=== PATIENT | female | born 1955 | race African-American/Black ===

== ENCOUNTER 2017-12-22 21:02 | Inpatient (IN) | payer MEDICAID ==
[~2017-12-22] VITALS: Ht 167.6 cm; Wt 70.8 kg
[2017-12-22] MEDS ORDERED: ALBUTEROL (0.083%) 2.5MG/3ML NEB HHN STA (21:50)
[2017-12-22] MEDS ORDERED: MORPHINE SULFATE 2 MG/ML CPJ (NOT FOR IM USE) IV ONE (22:00)
[2017-12-22 22:54] LABS: BASOPHILS % 0.9 % (0.0-2.0); EOSINOPHILS % 2.2 % (0.0-5.0); HEMATOCRIT. 40.5 % (36.0-48.0); LYMPHOCYTES % 36.1 % (20.0-50.0); MEAN CORPUSCULAR HEMOGLOBIN 31.4 pg (28.0-32.0); MEAN CORPUSCULAR VOLUME 98.4 fL (81.0-99.0); MEAN PLATELET VOLUME 9.1 fl (7.4-10.4); MONOCYTES % 9.1 % (2.0-8.0); NEUTROPHILS % 51.7 % (40.0-76.0); PLATELET 215 x1000/uL (130-400); RED BLOOD CELL COUNT 4.12 mill/uL (4.2-5.4); RED CELL DISTRIBUTION WIDTH 19.6 % (11.6-14.6)
[2017-12-22 22:59] LABS: CHLORIDE 110 mEq/L (98-107)
[2017-12-22 23:01] LABS: INR 1.1; PROTHROMBIN TIME 11.6 sec (9.4-11.6)
[2017-12-22] MEDS ORDERED: FUROSEMIDE 40MG/4ML VIAL IVP ONE (23:30)
[2017-12-22] MEDS ORDERED: METHYLPREDNISOLONE SOD SUCC 125 MG/2 ML VIAL IV ONE (23:45)
[2017-12-22] MEDS ORDERED: ACETAMINOPHEN WITH CODEINE 300/30MG TABLET PO ONE (23:45)
[2017-12-23] MEDS ORDERED: MAGNESIUM/ALUMINUM HYDROXIDE/SIMETHICONE 30ML UDC PO PRN (01:30)
[2017-12-23] MEDS ORDERED: CLONIDINE 0.1MG TABLET PO PRN (01:30)
[2017-12-23] MEDS ORDERED: IPRATROPIUM/ALBUTEROL 0.5-3(2.5)MG/3ML NEB INH PRN (01:30)
[2017-12-23] MEDS ORDERED: DOCUSATE SODIUM 100MG CAPSULE PO PRN (01:30)
[2017-12-23] MEDS ORDERED: ACETAMINOPHEN 325MG TABLET PO PRN (01:30)
[2017-12-23 02:05] LABS: CHLORIDE 105 mEq/L (98-107)
[2017-12-23 02:51] VITALS: BP 147/84
[2017-12-23 04:00] VITALS: BP 126/80
[2017-12-23] MEDS: METHYLPREDNISOLONE SOD SUCC 40 MG/ML VIAL IV SCH ×3 (06:48→21:57)
[2017-12-23 08:00] VITALS: BP 134/81
[2017-12-23] MEDS: ENOXAPARIN 40MG/0.4ML SYR SUBCUT SCH (10:17)
[2017-12-23 11:08] LABS: CREATINE KINASE MB FRACTION 2.3 ng/mL (0.5-3.6)
[2017-12-23 16:09] VITALS: BP 142/79
[2017-12-23] MEDS ORDERED: METHYLPREDNISOLONE SOD SUCC 40 MG/ML VIAL IV SCH (16:15)
[2017-12-23 18:51] LABS: CREATINE KINASE MB FRACTION 2.9 ng/mL (0.5-3.6)
[2017-12-23] MEDS: IPRATROPIUM/ALBUTEROL 0.5-3(2.5)MG/3ML NEB HHN SCH ×2 (19:43→23:21)
[2017-12-23 20:00] VITALS: BP 139/70
[2017-12-23] MEDS: HYDROCODONE/ACETAMINOPHEN 5/325MG TABLET PO PRN (20:39)
[2017-12-24] VITALS: BP 127/80
[2017-12-24] MEDS: GUAIFENESIN/DM 600MG/30MG ER TAB 12HR PO PRN (02:26)
[2017-12-24] MEDS: IPRATROPIUM/ALBUTEROL 0.5-3(2.5)MG/3ML NEB HHN SCH ×4 (04:03→21:22)
[2017-12-24 06:09] LABS: BASOPHILS % 0.4 % (0.0-2.0); HEMATOCRIT. 42.8 % (36.0-48.0); HEMOGLOBIN. 13.4 g/dL (12.0-16.0); LYMPHOCYTES % 10.7 % (20.0-50.0); MEAN CORPUSCULAR HEMOGLOBIN 31.1 pg (28.0-32.0); MEAN CORPUSCULAR VOLUME 99.3 fL (81.0-99.0); MEAN PLATELET VOLUME 9.4 fl (7.4-10.4); MONOCYTES % 2.6 % (2.0-8.0); NEUTROPHILS % 86.3 % (40.0-76.0); PLATELET 232 x1000/uL (130-400); RED BLOOD CELL COUNT 4.31 mill/uL (4.2-5.4); RED CELL DISTRIBUTION WIDTH 20.1 % (11.6-14.6)
[2017-12-24 08:00] VITALS: BP 100/76
[2017-12-24] MEDS ORDERED: BUDESONIDE 0.25MG/2ML NEB HHN SCH (09:00)
[2017-12-24] MEDS: ENOXAPARIN 40MG/0.4ML SYR SUBCUT SCH (09:48)
[2017-12-24 11:33] LABS: LDL CHOLESTEROL 54 mg/dL (5-100)
[2017-12-24 11:36] LABS: HDL CHOLESTEROL 73 mg/dL (40-59)
[2017-12-24 12:00] VITALS: BP 106/72
[2017-12-24] MEDS ORDERED: GUAIFENESIN/CODEINE 200-20MG/10ML UDC PO PRN (12:45)
[2017-12-24 16:00] VITALS: BP 122/75
[2017-12-24] MEDS: BUDESONIDE 0.5MG/2ML NEB HHN SCH ×2 (16:00→21:21)
[2017-12-24] MEDS: METHYLPREDNISOLONE SOD SUCC 125 MG/2 ML VIAL IV SCH ×2 (18:15→23:59)
[2017-12-24] MEDS: BENZONATATE 100MG CAPSULE PO SCH ×2 (18:16→22:19)
[2017-12-24 20:00] VITALS: BP 133/77
[2017-12-24] MEDS: HYDROCODONE/ACETAMINOPHEN 5/325MG TABLET PO PRN (22:26)
[2017-12-24] MEDS: PROMETHAZINE/DEXTROMETHORPHAN 6.25-15MG/5ML BOTTLE 120ML PO PRN (22:27)
[2017-12-25] VITALS (8 sets, daily range): BP systolic 127–154; BP diastolic 64–96
[2017-12-25] MEDS: IPRATROPIUM/ALBUTEROL 0.5-3(2.5)MG/3ML NEB HHN SCH ×6 (00:37→21:18)
[2017-12-25] MEDS: BENZONATATE 100MG CAPSULE PO SCH ×3 (05:17→22:02)
[2017-12-25] MEDS: METHYLPREDNISOLONE SOD SUCC 125 MG/2 ML VIAL IV SCH ×2 (05:17→12:52)
[2017-12-25] MEDS: HYDROCODONE/ACETAMINOPHEN 5/325MG TABLET PO PRN ×3 (05:31→21:57)
[2017-12-25 06:28] LABS: BASOPHILS % 0.6 % (0.0-2.0); EOSINOPHILS % 0.2 % (0.0-5.0); HEMOGLOBIN. 13.4 g/dL (12.0-16.0); MEAN CORPUSCULAR HEMOGLOBIN 31.3 pg (28.0-32.0); MEAN CORPUSCULAR VOLUME 98.3 fL (81.0-99.0); MEAN PLATELET VOLUME 9.3 fl (7.4-10.4); MONOCYTES % 1.6 % (2.0-8.0); NEUTROPHILS % 87.6 % (40.0-76.0); PLATELET 214 x1000/uL (130-400); RED BLOOD CELL COUNT 4.27 mill/uL (4.2-5.4); RED CELL DISTRIBUTION WIDTH 19.5 % (11.6-14.6)
[2017-12-25 06:52] LABS: CHLORIDE 102 mEq/L (98-107)
[2017-12-25] MEDS: ENOXAPARIN 40MG/0.4ML SYR SUBCUT SCH (08:53)
[2017-12-25] MEDS: BUDESONIDE 0.5MG/2ML NEB HHN SCH ×2 (09:02→21:18)
[2017-12-25] MEDS: GUAIFENESIN/DM 600MG/30MG ER TAB 12HR PO PRN (09:04)
[2017-12-25] MEDS: DILTIAZEM HCL 30MG TABLET PO SCH ×2 (12:53→22:03)
[2017-12-25] MEDS: ONDANSETRON HCL 4MG/2ML VIAL IV PRN ×2 (13:32→21:57)
[2017-12-25 17:00] LABS: COLOR URINE YELLOW (YELLOW); KETONES URINE NEGATIVE (NEGATIVE); LEUKOCYTE ESTERASE URINE 1+ (NEGATIVE); NITRITE URINE NEGATIVE (NEGATIVE); OCCULT BLOOD URINE NEGATIVE (NEGATIVE); PROTEIN URINE 1+ (NEGATIVE); SPECIFIC GRAVITY URINE 1.022 (1.005-1.030); UROBILINOGEN URINE 0.2 E.U./dL (0.2-1.0)
[2017-12-25 17:05] LABS: CLARITY URINE SLIGHTLY HAZY (CLEAR)
[2017-12-25 17:06] LABS: *AMPHETAMINES SCREEN URINE NEGATIVE (NEGATIVE); *BARBITURATES SCREEN URINE NEGATIVE (NEGATIVE); *BENZODIAZEPINES SCREEN URINE NEGATIVE (NEGATIVE)
[2017-12-25 17:07] LABS: *COCAINE SCREEN URINE PRESUMTIVE POSITIVE (NEGATIVE); CANNABINOID URINE SCREEN NEGATIVE (NEGATIVE); METHADONE URINE SCREEN NEGATIVE (NEGATIVE); OPIATES URINE SCREEN PRESUMTIVE POSITIVE (NEGATIVE); PHENCYCLIDINE URINE SCREEN PRESUMTIVE POSITIVE (NEGATIVE)
[2017-12-25] MEDS: THEOPHYLLINE ANHYDROUS 80 MG/15 ML 120ML PO SCH (21:53)
[2017-12-25] MEDS: METHYLPREDNISOLONE SOD SUCC 40 MG/ML VIAL IV SCH (21:53)
[2017-12-25] MEDS: PROMETHAZINE/DEXTROMETHORPHAN 6.25-15MG/5ML BOTTLE 120ML PO PRN (21:58)
[2017-12-26] MEDS: IPRATROPIUM/ALBUTEROL 0.5-3(2.5)MG/3ML NEB HHN SCH ×6 (00:59→20:29)
[2017-12-26] MEDS: PROMETHAZINE/DEXTROMETHORPHAN 6.25-15MG/5ML BOTTLE 120ML PO PRN (03:26)
[2017-12-26 04:00] VITALS: BP 128/72
[2017-12-26 07:00] VITALS: BP 122/78
[2017-12-26] MEDS: DILTIAZEM HCL 30MG TABLET PO SCH ×3 (07:00→20:33)
[2017-12-26] MEDS: BENZONATATE 100MG CAPSULE PO SCH ×3 (07:00→20:34)
[2017-12-26] MEDS: THEOPHYLLINE ANHYDROUS 80 MG/15 ML 120ML PO SCH ×3 (07:00→20:34)
[2017-12-26] MEDS: METHYLPREDNISOLONE SOD SUCC 40 MG/ML VIAL IV SCH ×3 (07:00→20:31)
[2017-12-26] MEDS: BUDESONIDE 0.5MG/2ML NEB HHN SCH ×3 (09:25→20:29)
[2017-12-26] MEDS: ENOXAPARIN 40MG/0.4ML SYR SUBCUT SCH (10:16)
[2017-12-26 12:00] VITALS: BP 122/71
[2017-12-26 13:12] LABS: HEMATOCRIT. 43.2 % (36.0-48.0); HEMOGLOBIN. 13.5 g/dL (12.0-16.0); MEAN CORPUSCULAR HEMOGLOBIN 31.2 pg (28.0-32.0); MEAN CORPUSCULAR VOLUME 100.1 fL (81.0-99.0); MEAN PLATELET VOLUME 9.3 fl (7.4-10.4); PLATELET 218 x1000/uL (130-400); RED BLOOD CELL COUNT 4.32 mill/uL (4.2-5.4); RED CELL DISTRIBUTION WIDTH 19.8 % (11.6-14.6)
[2017-12-26 13:32] LABS: CHLORIDE 100 mEq/L (98-107)
[2017-12-26] MEDS: HYDROCODONE/ACETAMINOPHEN 5/325MG TABLET PO PRN ×2 (13:54→20:32)
[2017-12-26 15:45] VITALS: BP 107/65
[2017-12-26 17:09] LABS: PLATELET ESTIMATE NORMAL
[2017-12-26 19:49] VITALS: BP 129/86
[2017-12-27] VITALS: BP 132/70
[2017-12-27] MEDS: IPRATROPIUM/ALBUTEROL 0.5-3(2.5)MG/3ML NEB HHN SCH ×6 (00:33→20:43)
[2017-12-27 04:00] VITALS: BP 121/73
[2017-12-27] MEDS: HYDROCODONE/ACETAMINOPHEN 5/325MG TABLET PO PRN ×2 (04:32→09:45)
[2017-12-27] MEDS: BENZONATATE 100MG CAPSULE PO SCH ×3 (06:39→21:30)
[2017-12-27] MEDS: THEOPHYLLINE ANHYDROUS 80 MG/15 ML 120ML PO SCH ×3 (06:40→21:31)
[2017-12-27] MEDS: METHYLPREDNISOLONE SOD SUCC 40 MG/ML VIAL IV SCH (06:40)
[2017-12-27] MEDS: DILTIAZEM HCL 30MG TABLET PO SCH ×3 (06:40→21:31)
[2017-12-27 06:45] LABS: HEMATOCRIT. 42.5 % (36.0-48.0); HEMOGLOBIN. 13.1 g/dL (12.0-16.0); MEAN CORPUSCULAR VOLUME 100.8 fL (81.0-99.0); MEAN PLATELET VOLUME 9.3 fl (7.4-10.4); PLATELET 219 x1000/uL (130-400); RED BLOOD CELL COUNT 4.22 mill/uL (4.2-5.4); RED CELL DISTRIBUTION WIDTH 19.4 % (11.6-14.6)
[2017-12-27 07:34] LABS: CHLORIDE 97 mEq/L (98-107)
[2017-12-27 07:41] LABS: PHOSPHORUS 2.9 mg/dL (2.5-4.9)
[2017-12-27 08:00] VITALS: BP 135/54
[2017-12-27] MEDS: BUDESONIDE 0.5MG/2ML NEB HHN SCH (08:33)
[2017-12-27] MEDS: ENOXAPARIN 40MG/0.4ML SYR SUBCUT SCH (09:43)
[2017-12-27 12:00] VITALS: BP 134/74
[2017-12-27 14:41] LABS: PLATELET ESTIMATE NORMAL
[2017-12-27] MEDS ORDERED: GUAI-741 PO (15:04)
[2017-12-27] MEDS ORDERED: BENZ100C86 PO (15:04)
[2017-12-27] MEDS ORDERED: THEOL PO (15:04)
[2017-12-27] MEDS ORDERED: DILT30TA38 PO (15:04)
[2017-12-27 16:00] VITALS: BP 148/78
[2017-12-27] MEDS ORDERED: BUDESONIDE 0.5MG/2ML NEB HHN SCH (16:00)
[2017-12-27] MEDS ORDERED: METHYLPREDNISOLONE SOD SUCC 40 MG/ML VIAL IV SCH (17:00)
[2017-12-27 20:44] VITALS: BP 159/78
[2017-12-27] MEDS: GUAIFENESIN/DM 600MG/30MG ER TAB 12HR PO PRN (21:31)
[2017-12-27] MEDS ORDERED: SODIUM POLYSTYRENE SULFONATE 15 G/60 ML BOT PO NR (22:00)
[2017-12-28 00:26] VITALS: BP 136/70
[2017-12-28] MEDS: IPRATROPIUM/ALBUTEROL 0.5-3(2.5)MG/3ML NEB HHN SCH ×2 (01:20→05:16)
[2017-12-28 04:00] VITALS: BP 158/86
[2017-12-28 05:14] VITALS: BP 158/86
[2017-12-28] MEDS ORDERED: PREDNISONE 20MG TABLET PO SCH (09:00)
[2018-01-04] MEDS ORDERED: PREDNISONE 10MG TABLET PO SCH (09:00)
[2018-01-06] MEDS ORDERED: PREDNISONE 20MG TABLET PO SCH (09:00)
[2018-01-08] MEDS ORDERED: PREDNISONE 10MG TABLET PO SCH (09:00)
== END 2017-12-28 06:30 | disposition home or self-care (01) | DRG 140 ==
LOC: ER 21:12 → 6WST 23:30 → EDBEDREQ 23:32 → EDBEDREQTM 23:32 → ENRESERV 23:48 → 6WST 12-23 02:30
PROVIDERS: ADMIT Internal Medicine; ATTEND Internal Medicine
DX: J44.1 Chronic obstructive pulmonary disease with (acute) exacerbation (principal); J96.21 Acute and chronic respiratory failure with hypoxia; I50.33 Acute on chronic diastolic (congestive) heart failure; E44.0 Moderate protein-calorie malnutrition; I27.20 Pulmonary hypertension, unspecified; I11.0 Hypertensive heart disease with heart failure; D72.829 Elevated white blood cell count, unspecified; E05.90 Thyrotoxicosis, unspecified without thyrotoxic crisis or storm; F17.210 Nicotine dependence, cigarettes, uncomplicated; T38.0X5A Adverse effect of glucocorticoids and synthetic analogues, initial encounter; F14.10 Cocaine abuse, uncomplicated; Y92.89 Other specified places as the place of occurrence of the external cause; Z82.5 Family history of asthma and other chronic lower respiratory diseases; Z85.42 Personal history of malignant neoplasm of other parts of uterus; Z68.25 Body mass index [BMI] 25.0-25.9, adult; Z86.73 Personal history of transient ischemic attack (TIA), and cerebral infarction without residual deficits; Z90.710 Acquired absence of both cervix and uterus; Z90.49 Acquired absence of other specified parts of digestive tract; Z88.0 Allergy status to penicillin; Z88.1 Allergy status to other antibiotic agents; Z88.8 Allergy status to other drugs, medicaments and biological substances; Z79.899 Other long term (current) drug therapy
CPT/HCPCS: 36415; 71045; 80048; 80053; 80061; 80305; 81003; 82550; 82553; 83735; 83880; 84100; 84443; 84484; 85025; 85610; 87040; 93005; 93970; 96374; 97162; 97530; 99291; J1650; J1940; J2270; J2405; J2920; J2930; J7611; J7620; J7626

== ENCOUNTER 2018-03-25 20:20 | Inpatient (IN) | payer MEDICAID ==
[~2018-03-25] VITALS: Ht 167.6 cm; Wt 70.3 kg
[~2018-03-25 20:20] MED LIST: BENZ100C86 PO; CELE-84 PO; DILT30TA38 PO; GUAI-741 PO; THEOL PO
[2018-03-25] MEDS ORDERED: ALBUTEROL (0.083%) 2.5MG/3ML NEB HHN STA (21:42)
[2018-03-25] MEDS ORDERED: IPRATROPIUM BROMIDE (0.02%) 0.5MG/2.5ML NEB HHN STA (21:42)
[2018-03-25] MEDS ORDERED: METHYLPREDNISOLONE SOD SUCC 125 MG/2 ML VIAL IV STA (21:42)
[2018-03-25] MEDS ORDERED: ASPIRIN 325MG EC TABLET PO ONE (22:30)
[2018-03-26 00:02] LABS: BASOPHILS % 0.7 % (0.0-2.0); EOSINOPHILS % 0.8 % (0.0-5.0); HEMATOCRIT. 42.7 % (36.0-48.0); HEMOGLOBIN. 13.6 g/dL (12.0-16.0); LYMPHOCYTES % 18.6 % (20.0-50.0); MEAN CORPUSCULAR HEMOGLOBIN 29.8 pg (28.0-32.0); MEAN CORPUSCULAR VOLUME 93.6 fL (81.0-99.0); MEAN PLATELET VOLUME 9.6 fl (7.4-10.4); MONOCYTES % 6.5 % (2.0-8.0); NEUTROPHILS % 73.4 % (40.0-76.0); PLATELET 230 x1000/uL (130-400); RED BLOOD CELL COUNT 4.56 mill/uL (4.2-5.4); RED CELL DISTRIBUTION WIDTH 18.9 % (11.6-14.6)
[2018-03-26 00:08] LABS: CHLORIDE 106 mEq/L (98-107)
[2018-03-26] MEDS ORDERED: ALBUTEROL (0.083%) 2.5MG/3ML NEB HHN ONE (03:45)
[2018-03-26] MEDS ORDERED: IPRATROPIUM BROMIDE (0.02%) 0.5MG/2.5ML NEB HHN ONE (03:45)
[2018-03-26 11:48] VITALS: BP 154/93
[2018-03-26 12:00] VITALS: BP 154/93
[2018-03-26] MEDS ORDERED: CLONIDINE 0.1MG TABLET PO PRN (14:45)
[2018-03-26 16:00] VITALS: BP 161/95
[2018-03-26] MEDS: METHYLPREDNISOLONE SOD SUCC 40 MG/ML VIAL IV SCH ×2 (17:04→21:23)
[2018-03-26] MEDS: ENOXAPARIN 40MG/0.4ML SYR SUBCUT SCH (17:05)
[2018-03-26] MEDS: DILTIAZEM HCL 30MG TABLET PO SCH ×2 (17:06→21:24)
[2018-03-26] MEDS: IPRATROPIUM/ALBUTEROL 0.5-3(2.5)MG/3ML NEB HHN PRN (17:57)
[2018-03-26] MEDS: HYDROCODONE/ACETAMINOPHEN 5/325MG TABLET PO PRN (19:51)
[2018-03-26 20:00] VITALS: BP 141/73
[2018-03-26] MEDS: IPRATROPIUM/ALBUTEROL 0.5-3(2.5)MG/3ML NEB HHN SCH (20:43)
[2018-03-26] MEDS: THEOPHYLLINE ANHYDROUS 80 MG/15 ML 120ML PO SCH (21:25)
[2018-03-26 23:22] LABS: CREATINE KINASE 152 IU/L (26-192)
[2018-03-27] VITALS (8 sets, daily range): BP systolic 137–150; BP diastolic 75–85
[2018-03-27] MEDS: IPRATROPIUM/ALBUTEROL 0.5-3(2.5)MG/3ML NEB HHN SCH ×6 (00:33→20:39)
[2018-03-27] MEDS: HYDROCODONE/ACETAMINOPHEN 5/325MG TABLET PO PRN ×3 (02:48→20:20)
[2018-03-27] MEDS: IPRATROPIUM/ALBUTEROL 0.5-3(2.5)MG/3ML NEB HHN PRN (02:53)
[2018-03-27] MEDS: ONDANSETRON HCL 4MG/2ML INJ IV PRN (05:40)
[2018-03-27] MEDS: DILTIAZEM HCL 30MG TABLET PO SCH ×3 (05:40→22:01)
[2018-03-27] MEDS: METHYLPREDNISOLONE SOD SUCC 40 MG/ML VIAL IV SCH ×3 (05:40→22:00)
[2018-03-27] MEDS: THEOPHYLLINE ANHYDROUS 80 MG/15 ML 120ML PO SCH ×3 (05:41→22:01)
[2018-03-27 06:50] LABS: BASOPHILS % 0.2 % (0.0-2.0); HEMATOCRIT. 41.4 % (36.0-48.0); HEMOGLOBIN. 13.3 g/dL (12.0-16.0); LYMPHOCYTES % 10.1 % (20.0-50.0); MEAN CORPUSCULAR HEMOGLOBIN 29.9 pg (28.0-32.0); MEAN CORPUSCULAR VOLUME 93.4 fL (81.0-99.0); NEUTROPHILS % 85.7 % (40.0-76.0); PLATELET 231 x1000/uL (130-400); RED BLOOD CELL COUNT 4.43 mill/uL (4.2-5.4); RED CELL DISTRIBUTION WIDTH 18.6 % (11.6-14.6)
[2018-03-27 08:05] LABS: CHLORIDE 101 mEq/L (98-107)
[2018-03-27 08:17] LABS: CREATINE KINASE 132 IU/L (26-192); CREATINE KINASE MB FRACTION 3.6 ng/mL (0.5-3.6)
[2018-03-27] MEDS ORDERED: LEVOFLOXACIN 500MG PREMIX 100 ML IV SCH (09:30)
[2018-03-27] MEDS: CEFTRIAXONE 1 G PREMIX 50 ML IV SCH (12:06)
[2018-03-27] MEDS: AZITHROMYCIN 500 MG in DEXT 5% WATER 250 ML IV SCH (13:30)
[2018-03-27] MEDS: GUAIFENESIN-DM 200MG-20MG/10ML UDC PO PRN (13:35)
[2018-03-27] MEDS ORDERED: METHYLPREDNISOLONE SOD SUCC 125 MG/2 ML VIAL IV SCH (14:30)
[2018-03-27] MEDS ORDERED: RACEPINEPHRINE 2.25% 0.5ML NEB VIAL HHN SCH (14:30)
[2018-03-27 15:46] LABS: BG BASE EXCESS 5.3 mmol/L (-2.0-2.0); BG CARBOXYHEMOGLOBIN 1.2 % (0.5-1.5); BG DEOXYHEMOGLOBIN 13.3 % (0.0-5.0); BG FRACTION INSPIRED OXYGEN 24; BG HCO3 ACT 34.7 mmol/L (22.0-26.0); BG METHEMOGLOBIN 0.3 % (0.0-1.5); BG OXYGEN SATURATION 86.5 % (92.0-98.5); BG OXYHEMOGLOBIN 85.2 % (94.0-97.0); BG PCO2 74.7 mmHg (35.0-45.0); BG PH 7.285 (7.350-7.450); BG PO2 56.4 mmHg (75.0-100.0); BG SAMPLE SITE LEFT RADIAL; BG TOTAL HEMOGLOBIN 14.3 g/dL (12.0-18.0); BG VENT MODE NASAL CANNULA
[2018-03-27 18:18] LABS: CREATINE KINASE 156 IU/L (26-192); CREATINE KINASE MB FRACTION 4.1 ng/mL (0.5-3.6)
[2018-03-27] MEDS: ENOXAPARIN 40MG/0.4ML SYR SUBCUT SCH (18:47)
[2018-03-27] MEDS ORDERED: FUROSEMIDE 40MG/4ML VIAL IVP NR (21:45)
[2018-03-28] VITALS (10 sets, daily range): BP systolic 126–152; BP diastolic 77–91
[2018-03-28] MEDS: IPRATROPIUM/ALBUTEROL 0.5-3(2.5)MG/3ML NEB HHN SCH ×6 (00:10→19:53)
[2018-03-28] MEDS: METHYLPREDNISOLONE SOD SUCC 40 MG/ML VIAL IV SCH ×3 (05:03→23:10)
[2018-03-28] MEDS: THEOPHYLLINE ANHYDROUS 80 MG/15 ML 120ML PO SCH ×3 (05:04→22:00)
[2018-03-28] MEDS: DILTIAZEM HCL 30MG TABLET PO SCH ×3 (05:04→23:09)
[2018-03-28 07:12] LABS: BASOPHILS % 0.1 % (0.0-2.0); HEMATOCRIT. 42.7 % (36.0-48.0); HEMOGLOBIN. 13.3 g/dL (12.0-16.0); LYMPHOCYTES % 8.7 % (20.0-50.0); MEAN CORPUSCULAR HEMOGLOBIN 29.6 pg (28.0-32.0); MEAN PLATELET VOLUME 9.7 fl (7.4-10.4); MONOCYTES % 4.1 % (2.0-8.0); NEUTROPHILS % 87.1 % (40.0-76.0); PLATELET 220 x1000/uL (130-400); RED CELL DISTRIBUTION WIDTH 18.7 % (11.6-14.6)
[2018-03-28 07:46] LABS: CHLORIDE 101 mEq/L (98-107)
[2018-03-28 07:51] LABS: BG BASE EXCESS 3.3 mmol/L (-2.0-2.0); BG CARBOXYHEMOGLOBIN 1.1 % (0.5-1.5); BG DEOXYHEMOGLOBIN 11.7 % (0.0-5.0); BG FRACTION INSPIRED OXYGEN 36; BG HCO3 ACT 32.8 mmol/L (22.0-26.0); BG METHEMOGLOBIN 0.4 % (0.0-1.5); BG OXYGEN SATURATION 88.1 % (92.0-98.5); BG OXYHEMOGLOBIN 86.8 % (94.0-97.0); BG PCO2 74.7 mmHg (35.0-45.0); BG PH 7.261 (7.350-7.450); BG PO2 61.4 mmHg (75.0-100.0); BG SAMPLE SITE RIGHT RADIAL; BG TOTAL HEMOGLOBIN 14.3 g/dL (12.0-18.0); BG VENT MODE NASAL CANNULA
[2018-03-28] MEDS: FUROSEMIDE 40MG/4ML VIAL IVP SCH (09:38)
[2018-03-28] MEDS: AZITHROMYCIN 500 MG in DEXT 5% WATER 250 ML IV SCH (10:00)
[2018-03-28] MEDS: CEFTRIAXONE 1 G PREMIX 50 ML IV SCH (10:00)
[2018-03-28] MEDS: HYDROCODONE/ACETAMINOPHEN 5/325MG TABLET PO PRN ×2 (13:24→20:03)
[2018-03-28] MEDS: ENOXAPARIN 40MG/0.4ML SYR SUBCUT SCH (14:44)
[2018-03-28] MEDS: ACETAMINOPHEN 325MG TABLET PO PRN (23:09)
[2018-03-29] VITALS (12 sets, daily range): BP systolic 139–169; BP diastolic 86–113
[2018-03-29] MEDS: IPRATROPIUM/ALBUTEROL 0.5-3(2.5)MG/3ML NEB HHN SCH ×6 (00:13→20:00)
[2018-03-29] MEDS: ONDANSETRON HCL 4MG/2ML INJ IV PRN ×3 (01:08→21:48)
[2018-03-29] MEDS: HYDROCODONE/ACETAMINOPHEN 5/325MG TABLET PO PRN ×3 (01:19→21:49)
[2018-03-29] MEDS: THEOPHYLLINE ANHYDROUS 80 MG/15 ML 120ML PO SCH ×3 (06:00→21:05)
[2018-03-29 06:04] LABS: HEMATOCRIT. 47.4 % (36.0-48.0); HEMOGLOBIN. 14.7 g/dL (12.0-16.0); MEAN CORPUSCULAR HEMOGLOBIN 29.3 pg (28.0-32.0); MEAN CORPUSCULAR VOLUME 94.8 fL (81.0-99.0); MEAN PLATELET VOLUME 9.8 fl (7.4-10.4); PLATELET 240 x1000/uL (130-400); RED BLOOD CELL COUNT 5.01 mill/uL (4.2-5.4); RED CELL DISTRIBUTION WIDTH 19.1 % (11.6-14.6)
[2018-03-29] MEDS: DILTIAZEM HCL 30MG TABLET PO SCH (06:40)
[2018-03-29] MEDS: METHYLPREDNISOLONE SOD SUCC 40 MG/ML VIAL IV SCH ×3 (06:40→22:00)
[2018-03-29 07:56] LABS: PLATELET ESTIMATE NORMAL
[2018-03-29] MEDS: FUROSEMIDE 40MG/4ML VIAL IVP SCH (09:07)
[2018-03-29] MEDS: ACETAMINOPHEN 325MG TABLET PO PRN ×2 (09:45→14:05)
[2018-03-29] MEDS: CEFTRIAXONE 1 G PREMIX 50 ML IV SCH (10:25)
[2018-03-29] MEDS: AZITHROMYCIN 500 MG in DEXT 5% WATER 250 ML IV SCH (11:30)
[2018-03-29 11:40] LABS: BG BASE EXCESS 5.1 mmol/L (-2.0-2.0); BG CARBOXYHEMOGLOBIN 1.4 % (0.5-1.5); BG FRACTION INSPIRED OXYGEN 32; BG METHEMOGLOBIN 0.4 % (0.0-1.5); BG OXYGEN SATURATION 89.8 % (92.0-98.5); BG OXYHEMOGLOBIN 88.2 % (94.0-97.0); BG PH 7.276 (7.350-7.450); BG PO2 63.5 mmHg (75.0-100.0); BG SAMPLE SITE RIGHT RADIAL; BG TOTAL HEMOGLOBIN 15.4 g/dL (12.0-18.0); BG VENT MODE NASAL CANNULA
[2018-03-29] MEDS ORDERED: SODIUM POLYSTYRENE SULFONATE 15 G/60 ML BOT PO SCH (12:00)
[2018-03-29] MEDS: AMLODIPINE 2.5MG TABLET PO SCH ×2 (12:26→20:32)
[2018-03-29] MEDS: ENOXAPARIN 40MG/0.4ML SYR SUBCUT SCH (15:32)
[2018-03-29] MEDS: LACTULOSE 20G/30ML UDC PO PRN (18:20)
[2018-03-30] VITALS (13 sets, daily range): BP systolic 129–180; BP diastolic 69–113
[2018-03-30] MEDS: IPRATROPIUM/ALBUTEROL 0.5-3(2.5)MG/3ML NEB HHN SCH ×6 (00:03→20:33)
[2018-03-30] MEDS: HYDROCODONE/ACETAMINOPHEN 5/325MG TABLET PO PRN (03:51)
[2018-03-30] MEDS: THEOPHYLLINE ANHYDROUS 80 MG/15 ML 120ML PO SCH ×3 (06:00→21:37)
[2018-03-30] MEDS: METHYLPREDNISOLONE SOD SUCC 40 MG/ML VIAL IV SCH ×3 (06:00→21:36)
[2018-03-30 06:10] LABS: BASOPHILS % 0.5 % (0.0-2.0); HEMOGLOBIN. 15.9 g/dL (12.0-16.0); LYMPHOCYTES % 7.2 % (20.0-50.0); MEAN CORPUSCULAR HEMOGLOBIN 29.7 pg (28.0-32.0); MEAN CORPUSCULAR VOLUME 93.4 fL (81.0-99.0); MEAN PLATELET VOLUME 8.9 fl (7.4-10.4); MONOCYTES % 9.2 % (2.0-8.0); NEUTROPHILS % 83.1 % (40.0-76.0); PLATELET 222 x1000/uL (130-400); RED BLOOD CELL COUNT 5.35 mill/uL (4.2-5.4); RED CELL DISTRIBUTION WIDTH 18.9 % (11.6-14.6)
[2018-03-30 07:14] LABS: CHLORIDE 95 mEq/L (98-107)
[2018-03-30] MEDS: ONDANSETRON HCL 4MG/2ML INJ IV PRN (07:27)
[2018-03-30] MEDS: CEFTRIAXONE 1 G PREMIX 50 ML IV SCH (09:36)
[2018-03-30] MEDS: FUROSEMIDE 40MG/4ML VIAL IVP SCH (09:36)
[2018-03-30] MEDS: AMLODIPINE 2.5MG TABLET PO SCH ×2 (09:36→21:36)
[2018-03-30] MEDS: AZITHROMYCIN 500 MG in DEXT 5% WATER 250 ML IV SCH (10:45)
[2018-03-30] MEDS ORDERED: MINERAL OIL ENEMA 133ML PR SCH (12:45)
[2018-03-30] MEDS: ENOXAPARIN 40MG/0.4ML SYR SUBCUT SCH (15:44)
[2018-03-30 16:05] LABS: BG BASE EXCESS 13.7 mmol/L (-2.0-2.0); BG DEOXYHEMOGLOBIN 35.2 % (0.0-5.0); BG FRACTION INSPIRED OXYGEN 21; BG HCO3 ACT 43.6 mmol/L (22.0-26.0); BG METHEMOGLOBIN 0.4 % (0.0-1.5); BG OXYGEN SATURATION 64.3 % (92.0-98.5); BG OXYHEMOGLOBIN 63.4 % (94.0-97.0); BG PCO2 76.6 mmHg (35.0-45.0); BG PH 7.373 (7.350-7.450); BG PO2 35.1 mmHg (75.0-100.0); BG SAMPLE SITE RIGHT RADIAL; BG TOTAL HEMOGLOBIN 16.7 g/dL (12.0-18.0); BG VENT MODE ROOM AIR
[2018-03-30 18:30] LABS: *AMPHETAMINES SCREEN URINE NEGATIVE (NEGATIVE); CANNABINOID URINE SCREEN NEGATIVE (NEGATIVE); METHADONE URINE SCREEN NEGATIVE (NEGATIVE); OPIATES URINE SCREEN PRESUMTIVE POSITIVE (NEGATIVE); PHENCYCLIDINE URINE SCREEN PRESUMTIVE POSITIVE (NEGATIVE)
[2018-03-30 18:31] LABS: *BARBITURATES SCREEN URINE NEGATIVE (NEGATIVE); *BENZODIAZEPINES SCREEN URINE NEGATIVE (NEGATIVE); *COCAINE SCREEN URINE NEGATIVE (NEGATIVE)
[2018-03-31] VITALS (11 sets, daily range): BP systolic 117–139; BP diastolic 71–81
[2018-03-31] MEDS: IPRATROPIUM/ALBUTEROL 0.5-3(2.5)MG/3ML NEB HHN SCH ×7 (00:39→23:58)
[2018-03-31] MEDS: HYDROCODONE/ACETAMINOPHEN 5/325MG TABLET PO PRN ×2 (00:49→08:15)
[2018-03-31] MEDS: THEOPHYLLINE ANHYDROUS 80 MG/15 ML 120ML PO SCH ×3 (05:37→21:30)
[2018-03-31] MEDS: METHYLPREDNISOLONE SOD SUCC 40 MG/ML VIAL IV SCH ×3 (05:37→21:16)
[2018-03-31 06:11] LABS: HEMOGLOBIN. 14.3 g/dL (12.0-16.0); MEAN CORPUSCULAR HEMOGLOBIN 29.5 pg (28.0-32.0); MEAN CORPUSCULAR VOLUME 92.6 fL (81.0-99.0); MEAN PLATELET VOLUME 9.7 fl (7.4-10.4); PLATELET 203 x1000/uL (130-400); RED BLOOD CELL COUNT 4.86 mill/uL (4.2-5.4); RED CELL DISTRIBUTION WIDTH 18.6 % (11.6-14.6)
[2018-03-31] MEDS: AMLODIPINE 2.5MG TABLET PO SCH ×2 (08:22→20:41)
[2018-03-31] MEDS: FUROSEMIDE 40MG/4ML VIAL IVP SCH (08:23)
[2018-03-31] MEDS: CEFTRIAXONE 1 G PREMIX 50 ML IV SCH (08:24)
[2018-03-31] MEDS: AZITHROMYCIN 500 MG in DEXT 5% WATER 250 ML IV SCH (13:00)
[2018-03-31] MEDS: ENOXAPARIN 40MG/0.4ML SYR SUBCUT SCH (13:00)
[2018-03-31] MEDS ORDERED: ACETAZOLAMIDE 250MG TABLET PO SCH (17:15)
[2018-03-31] MEDS: ACETAZOLAMIDE 250MG TABLET PO SCH (20:40)
[2018-03-31] MEDS: ACETAMINOPHEN 325MG TABLET PO PRN (21:29)
[2018-04-01] VITALS (13 sets, daily range): BP systolic 102–143; BP diastolic 19–97
[2018-04-01] MEDS: IPRATROPIUM/ALBUTEROL 0.5-3(2.5)MG/3ML NEB HHN SCH ×5 (03:55→21:26)
[2018-04-01] MEDS: ACETAMINOPHEN 325MG TABLET PO PRN ×2 (04:16→14:34)
[2018-04-01] MEDS: METHYLPREDNISOLONE SOD SUCC 40 MG/ML VIAL IV SCH ×3 (05:07→21:47)
[2018-04-01] MEDS: THEOPHYLLINE ANHYDROUS 80 MG/15 ML 120ML PO SCH ×3 (05:10→21:47)
[2018-04-01 06:27] LABS: BASOPHILS % 0.2 % (0.0-2.0); HEMATOCRIT. 43.7 % (36.0-48.0); HEMOGLOBIN. 13.9 g/dL (12.0-16.0); LYMPHOCYTES % 7.7 % (20.0-50.0); MEAN CORPUSCULAR HEMOGLOBIN 29.6 pg (28.0-32.0); MEAN CORPUSCULAR VOLUME 92.9 fL (81.0-99.0); MEAN PLATELET VOLUME 9.3 fl (7.4-10.4); MONOCYTES % 5.2 % (2.0-8.0); NEUTROPHILS % 86.9 % (40.0-76.0); PLATELET 180 x1000/uL (130-400); RED CELL DISTRIBUTION WIDTH 18.6 % (11.6-14.6)
[2018-04-01 06:46] LABS: CHLORIDE 91 mEq/L (98-107)
[2018-04-01 07:05] LABS: PLATELET ESTIMATE NORMAL
[2018-04-01] MEDS: FUROSEMIDE 40MG/4ML VIAL IVP SCH (08:31)
[2018-04-01] MEDS: ACETAZOLAMIDE 250MG TABLET PO SCH (08:31)
[2018-04-01] MEDS: AMLODIPINE 2.5MG TABLET PO SCH ×2 (08:32→22:57)
[2018-04-01] MEDS: CEFTRIAXONE 1 G PREMIX 50 ML IV SCH (10:32)
[2018-04-01] MEDS: AZITHROMYCIN 500 MG in DEXT 5% WATER 250 ML IV SCH (10:32)
[2018-04-01 11:26] LABS: BG BASE EXCESS 8.7 mmol/L (-2.0-2.0); BG CARBOXYHEMOGLOBIN 1.6 % (0.5-1.5); BG DEOXYHEMOGLOBIN 13.3 % (0.0-5.0); BG FRACTION INSPIRED OXYGEN 36; BG HCO3 ACT 36.2 mmol/L (22.0-26.0); BG METHEMOGLOBIN 0.4 % (0.0-1.5); BG OXYGEN SATURATION 86.4 % (92.0-98.5); BG OXYHEMOGLOBIN 84.7 % (94.0-97.0); BG PCO2 61.5 mmHg (35.0-45.0); BG PH 7.388 (7.350-7.450); BG SAMPLE SITE LEFT RADIAL; BG TOTAL HEMOGLOBIN 15.3 g/dL (12.0-18.0); BG VENT MODE NASAL CANNULA
[2018-04-01] MEDS: ENOXAPARIN 40MG/0.4ML SYR SUBCUT SCH (14:28)
[2018-04-01] MEDS: LACTULOSE 20G/30ML UDC PO PRN (21:47)
[2018-04-02] VITALS (15 sets, daily range): BP systolic 128–149; BP diastolic 72–94
[2018-04-02] MEDS: ACETAMINOPHEN 325MG TABLET PO PRN ×5 (00:48→21:57)
[2018-04-02] MEDS: IPRATROPIUM/ALBUTEROL 0.5-3(2.5)MG/3ML NEB HHN SCH ×5 (01:31→21:19)
[2018-04-02] MEDS: METHYLPREDNISOLONE SOD SUCC 40 MG/ML VIAL IV SCH ×3 (05:26→21:53)
[2018-04-02] MEDS: THEOPHYLLINE ANHYDROUS 80 MG/15 ML 120ML PO SCH ×3 (05:41→21:54)
[2018-04-02 06:59] LABS: HEMOGLOBIN. 13.8 g/dL (12.0-16.0); LYMPHOCYTES % 7.6 % (20.0-50.0); MEAN CORPUSCULAR HEMOGLOBIN 29.6 pg (28.0-32.0); MEAN CORPUSCULAR VOLUME 92.5 fL (81.0-99.0); MEAN PLATELET VOLUME 9.6 fl (7.4-10.4); NEUTROPHILS % 89.4 % (40.0-76.0); PLATELET 166 x1000/uL (130-400); RED BLOOD CELL COUNT 4.66 mill/uL (4.2-5.4); RED CELL DISTRIBUTION WIDTH 18.9 % (11.6-14.6)
[2018-04-02 07:57] LABS: CHLORIDE 96 mEq/L (98-107)
[2018-04-02] MEDS: FUROSEMIDE 40MG/4ML VIAL IVP SCH (08:30)
[2018-04-02] MEDS: ACETAZOLAMIDE 250MG TABLET PO SCH (08:30)
[2018-04-02] MEDS: AMLODIPINE 2.5MG TABLET PO SCH ×2 (08:33→21:53)
[2018-04-02] MEDS: GUAIFENESIN-DM 200MG-20MG/10ML UDC PO PRN ×2 (08:55→21:56)
[2018-04-02] MEDS ORDERED: AZITHROMYCIN 500 MG TABLET PO SCH (09:00)
[2018-04-02] MEDS: CEFTRIAXONE 1 G PREMIX 50 ML IV SCH (11:19)
[2018-04-02] MEDS: ENOXAPARIN 40MG/0.4ML SYR SUBCUT SCH (15:26)
[2018-04-03] VITALS (11 sets, daily range): BP systolic 120–149; BP diastolic 70–93
[2018-04-03] MEDS: IPRATROPIUM/ALBUTEROL 0.5-3(2.5)MG/3ML NEB HHN SCH ×6 (00:30→21:09)
[2018-04-03] MEDS: ACETAMINOPHEN 325MG TABLET PO PRN ×2 (04:38→09:30)
[2018-04-03 05:12] LABS: CHLORIDE 98 mEq/L (98-107)
[2018-04-03] MEDS: THEOPHYLLINE ANHYDROUS 80 MG/15 ML 120ML PO SCH ×3 (06:00→21:29)
[2018-04-03] MEDS: METHYLPREDNISOLONE SOD SUCC 40 MG/ML VIAL IV SCH ×3 (06:11→21:23)
[2018-04-03 07:45] LABS: BG BASE EXCESS 1.7 mmol/L (-2.0-2.0); BG CARBOXYHEMOGLOBIN 1.4 % (0.5-1.5); BG DEOXYHEMOGLOBIN 9.3 % (0.0-5.0); BG HCO3 ACT 28.6 mmol/L (22.0-26.0); BG METHEMOGLOBIN 0.4 % (0.0-1.5); BG OXYGEN SATURATION 90.5 % (92.0-98.5); BG OXYHEMOGLOBIN 88.9 % (94.0-97.0); BG PCO2 53.6 mmHg (35.0-45.0); BG PH 7.345 (7.350-7.450); BG PO2 62.7 mmHg (75.0-100.0); BG SAMPLE SITE RIGHT RADIAL; BG TOTAL HEMOGLOBIN 15.1 g/dL (12.0-18.0)
[2018-04-03 07:56] LABS: BG VENT MODE NASAL CANNULA
[2018-04-03] MEDS: AMLODIPINE 2.5MG TABLET PO SCH ×2 (09:11→21:29)
[2018-04-03] MEDS: ENOXAPARIN 40MG/0.4ML SYR SUBCUT SCH (15:00)
[2018-04-04] VITALS (12 sets, daily range): BP systolic 120–153; BP diastolic 60–90
[2018-04-04] MEDS: IPRATROPIUM/ALBUTEROL 0.5-3(2.5)MG/3ML NEB HHN SCH ×5 (00:56→17:23)
[2018-04-04 06:56] LABS: HEMATOCRIT. 44.9 % (36.0-48.0); HEMOGLOBIN. 14.7 g/dL (12.0-16.0); MEAN CORPUSCULAR HEMOGLOBIN 29.8 pg (28.0-32.0); MEAN CORPUSCULAR VOLUME 91.2 fL (81.0-99.0); MEAN PLATELET VOLUME 9.3 fl (7.4-10.4); PLATELET 156 x1000/uL (130-400); RED BLOOD CELL COUNT 4.92 mill/uL (4.2-5.4); RED CELL DISTRIBUTION WIDTH 18.3 % (11.6-14.6)
[2018-04-04 06:59] LABS: CHLORIDE 99 mEq/L (98-107)
[2018-04-04] MEDS: FUROSEMIDE 40MG TABLET PO SCH ×2 (09:00→10:04)
[2018-04-04] MEDS: AMLODIPINE 2.5MG TABLET PO SCH ×2 (10:05→21:00)
[2018-04-04 13:11] LABS: PLATELET ESTIMATE NORMAL
[2018-04-04] MEDS: THEOPHYLLINE ANHYDROUS 80 MG/15 ML 120ML PO SCH (14:00)
[2018-04-04] MEDS: ENOXAPARIN 40MG/0.4ML SYR SUBCUT SCH (16:25)
[2018-04-04] MEDS: METHYLPREDNISOLONE SOD SUCC 40 MG/ML VIAL IV SCH (22:25)
[2018-04-04] MEDS: ACETAMINOPHEN 325MG TABLET PO PRN (22:30)
[2018-04-05] VITALS (12 sets, daily range): BP systolic 118–148; BP diastolic 64–93
[2018-04-05] MEDS: IPRATROPIUM/ALBUTEROL 0.5-3(2.5)MG/3ML NEB HHN SCH ×7 (01:25→22:35)
[2018-04-05] MEDS: THEOPHYLLINE ANHYDROUS 80 MG/15 ML 120ML PO SCH ×3 (06:10→22:00)
[2018-04-05] MEDS: FUROSEMIDE 40MG TABLET PO SCH (08:47)
[2018-04-05] MEDS: AMLODIPINE 2.5MG TABLET PO SCH ×2 (08:47→21:00)
[2018-04-05] MEDS: METHYLPREDNISOLONE SOD SUCC 40 MG/ML VIAL IV SCH ×2 (15:26→15:30)
[2018-04-05] MEDS: ENOXAPARIN 40MG/0.4ML SYR SUBCUT SCH (15:27)
[2018-04-05] MEDS ORDERED: ALPRAZOLAM 0.25 MG TABLET PO PRN (17:15)
[2018-04-06] MEDS: IPRATROPIUM/ALBUTEROL 0.5-3(2.5)MG/3ML NEB HHN SCH ×6 (03:10→20:00)
[2018-04-06] MEDS: METHYLPREDNISOLONE SOD SUCC 40 MG/ML VIAL IV SCH ×2 (05:55→17:26)
[2018-04-06] MEDS: THEOPHYLLINE ANHYDROUS 80 MG/15 ML 120ML PO SCH ×3 (05:56→22:00)
[2018-04-06] MEDS: FUROSEMIDE 40MG TABLET PO SCH (08:56)
[2018-04-06] MEDS: AMLODIPINE 2.5MG TABLET PO SCH ×2 (08:56→21:00)
[2018-04-06] MEDS: ENOXAPARIN 40MG/0.4ML SYR SUBCUT SCH (14:03)
[2018-04-06 16:00] VITALS: BP 104/64
[2018-04-06 20:00] VITALS: BP 117/68
[2018-04-07] MEDS: IPRATROPIUM/ALBUTEROL 0.5-3(2.5)MG/3ML NEB HHN SCH ×4 (03:40→15:35)
[2018-04-07] MEDS: THEOPHYLLINE ANHYDROUS 80 MG/15 ML 120ML PO SCH (05:44)
[2018-04-07] MEDS: METHYLPREDNISOLONE SOD SUCC 40 MG/ML VIAL IV SCH ×2 (05:44→08:24)
[2018-04-07] MEDS: AMLODIPINE 2.5MG TABLET PO SCH (08:29)
[2018-04-07] MEDS: FUROSEMIDE 40MG TABLET PO SCH (08:29)
[2018-04-07 12:00] VITALS: BP 103/70
[2018-04-07 16:47] VITALS: BP 103/70
== END 2018-04-07 17:11 | disposition home or self-care (01) | DRG 133 ==
LOC: ER 20:30 → 5WST 03-26 00:58 → ENRESERV 03-26 10:32 → 5EST 03-27 14:24 → 7WST 04-06 12:45
PROVIDERS: ADMIT Internal Medicine; ATTEND Internal Medicine
PROC: 5A09357 Assistance with Respiratory Ventilation, Less than 24 Consecutive Hours, Continuous Positive Airway Pressure (ICD-10-PCS; principal; 2018-03-28)
PROC: 5A09357 Assistance with Respiratory Ventilation, Less than 24 Consecutive Hours, Continuous Positive Airway Pressure (ICD-10-PCS; 2018-03-29)
PROC: 5A09357 Assistance with Respiratory Ventilation, Less than 24 Consecutive Hours, Continuous Positive Airway Pressure (ICD-10-PCS; 2018-04-01)
DX: J96.01 Acute respiratory failure with hypoxia (principal); E43 Unspecified severe protein-calorie malnutrition; I50.33 Acute on chronic diastolic (congestive) heart failure; E87.3 Alkalosis; E83.51 Hypocalcemia; E87.5 Hyperkalemia; I07.1 Rheumatic tricuspid insufficiency; I27.29 Other secondary pulmonary hypertension; I11.0 Hypertensive heart disease with heart failure; J96.02 Acute respiratory failure with hypercapnia; I27.81 Cor pulmonale (chronic); J44.1 Chronic obstructive pulmonary disease with (acute) exacerbation; Z85.42 Personal history of malignant neoplasm of other parts of uterus; F17.210 Nicotine dependence, cigarettes, uncomplicated; F12.10 Cannabis abuse, uncomplicated; Z59.0 Homelessness; Z86.73 Personal history of transient ischemic attack (TIA), and cerebral infarction without residual deficits; Z90.710 Acquired absence of both cervix and uterus; Z68.25 Body mass index [BMI] 25.0-25.9, adult; Z88.0 Allergy status to penicillin; Z88.8 Allergy status to other drugs, medicaments and biological substances
CPT/HCPCS: 36415; 36600; 71045; 71250; 74176; 78582; 80048; 80305; 82375; 82550; 82553; 82805; 82962; 83735; 83880; 84484; 93005; 93306; 93970; 94640; 94660; 96374; 97116; 97162; 97530; 99285; A9558; J0456; J0696; J1650; J1940; J2405; J2920; J2930; J7050; J7060; J7611; J7620

== ENCOUNTER 2018-04-15 17:13 | Inpatient (IN) | payer MEDICAID, OTHER ==
[~2018-04-15] VITALS: Ht 167.6 cm; Wt 78.0 kg
[2018-04-15] MEDS ORDERED: METHYLPREDNISOLONE SOD SUCC 125 MG/2 ML VIAL IV STA ×2 (18:08→18:56)
[2018-04-15] MEDS ORDERED: IPRATROPIUM BROMIDE (0.02%) 0.5MG/2.5ML NEB HHN STA (18:08)
[2018-04-15] MEDS ORDERED: ALBUTEROL (0.083%) 2.5MG/3ML NEB HHN STA (18:08)
[2018-04-15] MEDS ORDERED: MAGNESIUM 2 G PREMIX 50 ML IV STA (18:56)
[2018-04-15 19:57] LABS: BASOPHILS % 1.1 % (0.0-2.0); EOSINOPHILS % 1.6 % (0.0-5.0); HEMATOCRIT. 42.9 % (36.0-48.0); HEMOGLOBIN. 13.9 g/dL (12.0-16.0); LYMPHOCYTES % 19.2 % (20.0-50.0); MEAN CORPUSCULAR HEMOGLOBIN 29.7 pg (28.0-32.0); MEAN CORPUSCULAR VOLUME 91.8 fL (81.0-99.0); MEAN PLATELET VOLUME 8.8 fl (7.4-10.4); MONOCYTES % 7.6 % (2.0-8.0); NEUTROPHILS % 70.5 % (40.0-76.0); PLATELET 161 x1000/uL (130-400); RED BLOOD CELL COUNT 4.67 mill/uL (4.2-5.4); RED CELL DISTRIBUTION WIDTH 19.8 % (11.6-14.6)
[2018-04-15 20:03] LABS: INR 1.1; PARTIAL THROMBOPLASTIN TIME 23.7 sec (23.4-31.0); PROTHROMBIN TIME 11.5 sec (9.1-11.1)
[2018-04-15 20:06] LABS: CHLORIDE 107 mEq/L (98-107)
[2018-04-15 20:29] LABS: THEOPHYLLINE < 2.0 ug/mL (10-20)
[2018-04-15 20:50] LABS: CLARITY URINE CLOUDY (CLEAR); COLOR URINE DARK YELLOW (YELLOW); KETONES URINE TRACE (NEGATIVE); LEUKOCYTE ESTERASE URINE 1+ (NEGATIVE); NITRITE URINE NEGATIVE (NEGATIVE); OCCULT BLOOD URINE TRACE (NEGATIVE); PROTEIN URINE 3+ (NEGATIVE)
[2018-04-15] MEDS ORDERED: DIPHENHYDRAMINE 50MG/ML VIAL IV PRN (21:45)
[2018-04-15] MEDS ORDERED: AZITHROMYCIN 500 MG in DEXT 5% WATER 250 ML IV SCH (21:45)
[2018-04-15] MEDS ORDERED: MORPHINE SULFATE 4 MG/ML CPJ (NOT FOR IM USE) IV PRN (21:45)
[2018-04-15] MEDS ORDERED: DOCUSATE SODIUM 100MG CAPSULE PO PRN (21:45)
[2018-04-15] MEDS ORDERED: CLONIDINE 0.1MG TABLET PO PRN (21:45)
[2018-04-15] MEDS ORDERED: IPRATROPIUM/ALBUTEROL 0.5-3(2.5)MG/3ML NEB INH PRN (21:45)
[2018-04-15] MEDS ORDERED: NA PHOS,M-B/NA PHOS,DI-BA ENEMA 118ML PR PRN (21:45)
[2018-04-15 22:25] VITALS: BP 137/76
[2018-04-15 23:52] LABS: CHLORIDE 108 mEq/L (98-107)
[2018-04-16] VITALS (11 sets, daily range): BP systolic 123–146; BP diastolic 63–89
[2018-04-16] MEDS: AZITHROMYCIN 500 MG in DEXT 5% WATER 250 ML IV SCH (00:52)
[2018-04-16 05:40] LABS: HEMATOCRIT. 39.5 % (36.0-48.0); HEMOGLOBIN. 12.6 g/dL (12.0-16.0); MEAN CORPUSCULAR HEMOGLOBIN 29.4 pg (28.0-32.0); MEAN CORPUSCULAR VOLUME 92.3 fL (81.0-99.0); MEAN PLATELET VOLUME 9.2 fl (7.4-10.4); PLATELET 147 x1000/uL (130-400); RED BLOOD CELL COUNT 4.28 mill/uL (4.2-5.4); RED CELL DISTRIBUTION WIDTH 19.8 % (11.6-14.6)
[2018-04-16 06:00] LABS: HDL CHOLESTEROL 76 mg/dL (40-59); LDL CHOLESTEROL 60 mg/dL (5-100)
[2018-04-16] MEDS: METHYLPREDNISOLONE SOD SUCC 125 MG/2 ML VIAL IV SCH ×3 (06:07→16:51)
[2018-04-16] MEDS: FUROSEMIDE 40MG/4ML VIAL IV SCH (09:00)
[2018-04-16] MEDS: ASPIRIN 81MG EC TABLET PO SCH (09:43)
[2018-04-16] MEDS: ENOXAPARIN 40MG/0.4ML SYR SUBCUT SCH (09:43)
[2018-04-16] MEDS: HYDROCODONE/ACETAMINOPHEN 10/325MG TABLET PO PRN ×2 (09:45→16:51)
[2018-04-16 13:00] LABS: T4 FREE 1.14 ng/dL (0.76-1.46)
[2018-04-16 13:03] LABS: PLATELET ESTIMATE NORMAL
[2018-04-16 16:02] LABS: CREATINE KINASE 229 IU/L (26-192); CREATINE KINASE MB FRACTION 2.8 ng/mL (0.5-3.6)
[2018-04-16] MEDS ORDERED: BENZONATATE 100MG CAPSULE PO PRN (18:00)
[2018-04-16] MEDS: LORAZEPAM 2MG/ML CPJ IV PRN (21:40)
[2018-04-16 22:53] LABS: *AMPHETAMINES SCREEN URINE NEGATIVE (NEGATIVE); *BARBITURATES SCREEN URINE NEGATIVE (NEGATIVE); *BENZODIAZEPINES SCREEN URINE NEGATIVE (NEGATIVE); *COCAINE SCREEN URINE PRESUMTIVE POSITIVE (NEGATIVE); CANNABINOID URINE SCREEN NEGATIVE (NEGATIVE); METHADONE URINE SCREEN NEGATIVE (NEGATIVE); OPIATES URINE SCREEN PRESUMTIVE POSITIVE (NEGATIVE); PHENCYCLIDINE URINE SCREEN PRESUMTIVE POSITIVE (NEGATIVE)
[2018-04-16] MEDS: METHYLPREDNISOLONE SOD SUCC 40 MG/ML VIAL IV SCH (23:14)
[2018-04-17] VITALS (11 sets, daily range): BP systolic 121–158; BP diastolic 77–98
[2018-04-17] MEDS: AZITHROMYCIN 500 MG in DEXT 5% WATER 250 ML IV SCH (00:42)
[2018-04-17 01:05] LABS: CREATINE KINASE 205 IU/L (26-192); CREATINE KINASE MB FRACTION 2.3 ng/mL (0.5-3.6)
[2018-04-17] MEDS: METHYLPREDNISOLONE SOD SUCC 40 MG/ML VIAL IV SCH ×3 (05:40→21:56)
[2018-04-17 06:43] LABS: CREATINE KINASE 160 IU/L (26-192)
[2018-04-17] MEDS: IPRATROPIUM/ALBUTEROL 0.5-3(2.5)MG/3ML NEB HHN SCH ×2 (07:52→13:43)
[2018-04-17] MEDS: FUROSEMIDE 40MG/4ML VIAL IV SCH ×2 (08:56→09:00)
[2018-04-17] MEDS: ASPIRIN 81MG EC TABLET PO SCH (08:56)
[2018-04-17] MEDS: ENOXAPARIN 40MG/0.4ML SYR SUBCUT SCH (08:57)
[2018-04-17] MEDS ORDERED: ASPIRIN 81MG TABLET PO SCH (09:00)
[2018-04-17] MEDS: LORAZEPAM 2MG/ML CPJ IV PRN (21:56)
[2018-04-18] VITALS (10 sets, daily range): BP systolic 103–165; BP diastolic 67–98
[2018-04-18] MEDS: IPRATROPIUM/ALBUTEROL 0.5-3(2.5)MG/3ML NEB HHN SCH ×3 (01:24→20:08)
[2018-04-18] MEDS: AZITHROMYCIN 500 MG in DEXT 5% WATER 250 ML IV SCH (01:25)
[2018-04-18] MEDS: METHYLPREDNISOLONE SOD SUCC 40 MG/ML VIAL IV SCH (05:51)
[2018-04-18] MEDS: ENOXAPARIN 40MG/0.4ML SYR SUBCUT SCH (08:12)
[2018-04-18] MEDS: ASPIRIN 81MG EC TABLET PO SCH (08:12)
[2018-04-18] MEDS: FUROSEMIDE 40MG/4ML VIAL IV SCH (08:16)
[2018-04-18] MEDS: HYDROCODONE/ACETAMINOPHEN 10/325MG TABLET PO PRN ×2 (11:23→23:08)
[2018-04-19] VITALS (12 sets, daily range): BP systolic 114–152; BP diastolic 67–89
[2018-04-19] MEDS: LORAZEPAM 2MG/ML CPJ IV PRN ×2 (00:49→21:35)
[2018-04-19] MEDS: AZITHROMYCIN 500 MG in DEXT 5% WATER 250 ML IV SCH (00:59)
[2018-04-19] MEDS: IPRATROPIUM/ALBUTEROL 0.5-3(2.5)MG/3ML NEB HHN SCH ×4 (02:56→19:56)
[2018-04-19] MEDS: FUROSEMIDE 40MG/4ML VIAL IV SCH (09:13)
[2018-04-19] MEDS: ENOXAPARIN 40MG/0.4ML SYR SUBCUT SCH (09:13)
[2018-04-19] MEDS: ASPIRIN 81MG EC TABLET PO SCH (09:13)
[2018-04-19] MEDS: PREDNISONE 20MG TABLET PO SCH (09:13)
[2018-04-19] MEDS: HYDROCODONE/ACETAMINOPHEN 10/325MG TABLET PO PRN (14:04)
[2018-04-19 15:31] LABS: BG BASE EXCESS 13.8 mmol/L (-2.0-2.0); BG CARBOXYHEMOGLOBIN 1.1 % (0.5-1.5); BG DEOXYHEMOGLOBIN 15.9 % (0.0-5.0); BG FRACTION INSPIRED OXYGEN 21; BG HCO3 ACT 41.4 mmol/L (22.0-26.0); BG METHEMOGLOBIN 0.3 % (0.0-1.5); BG OXYGEN SATURATION 83.9 % (92.0-98.5); BG OXYHEMOGLOBIN 82.7 % (94.0-97.0); BG PCO2 65.1 mmHg (35.0-45.0); BG PH 7.421 (7.350-7.450); BG PO2 48.5 mmHg (75.0-100.0); BG SAMPLE SITE RIGHT RADIAL; BG TOTAL HEMOGLOBIN 13.9 g/dL (12.0-18.0); BG VENT MODE ROOM AIR
[2018-04-19] MEDS: GUAIFENESIN 200MG/10ML SUGAR FREE UDC PO PRN (15:37)
[2018-04-20] VITALS (10 sets, daily range): BP systolic 114–137; BP diastolic 45–85
[2018-04-20] MEDS: AZITHROMYCIN 500 MG in DEXT 5% WATER 250 ML IV SCH (01:16)
[2018-04-20] MEDS: IPRATROPIUM/ALBUTEROL 0.5-3(2.5)MG/3ML NEB HHN SCH ×3 (01:38→14:10)
[2018-04-20] MEDS: HYDROCODONE/ACETAMINOPHEN 10/325MG TABLET PO PRN ×2 (02:46→17:40)
[2018-04-20 07:09] LABS: BASOPHILS % 0.2 % (0.0-2.0); EOSINOPHILS % 0.3 % (0.0-5.0); HEMATOCRIT. 38.6 % (36.0-48.0); HEMOGLOBIN. 12.3 g/dL (12.0-16.0); LYMPHOCYTES % 12.1 % (20.0-50.0); MEAN CORPUSCULAR HEMOGLOBIN 29.4 pg (28.0-32.0); MEAN CORPUSCULAR VOLUME 92.7 fL (81.0-99.0); MEAN PLATELET VOLUME 9.3 fl (7.4-10.4); MONOCYTES % 7.9 % (2.0-8.0); NEUTROPHILS % 79.5 % (40.0-76.0); PLATELET 162 x1000/uL (130-400); RED BLOOD CELL COUNT 4.17 mill/uL (4.2-5.4); RED CELL DISTRIBUTION WIDTH 20.8 % (11.6-14.6)
[2018-04-20 07:48] LABS: CHLORIDE 97 mEq/L (98-107)
[2018-04-20] MEDS: FUROSEMIDE 40MG/4ML VIAL IV SCH (09:14)
[2018-04-20] MEDS: ASPIRIN 81MG EC TABLET PO SCH (09:14)
[2018-04-20] MEDS: PREDNISONE 20MG TABLET PO SCH ×2 (09:14→17:32)
[2018-04-20] MEDS: ENOXAPARIN 40MG/0.4ML SYR SUBCUT SCH (09:17)
[2018-04-20] MEDS ORDERED: METHYLPREDNISOLONE SOD SUCC 125 MG/2 ML VIAL IV NR (13:30)
[2018-04-20] MEDS ORDERED: METHYLPREDNISOLONE SOD SUCC 40 MG/ML VIAL IV SCH ×2 (14:00→22:00)
[2018-04-20 14:48] LABS: BG BASE EXCESS 16.7 mmol/L (-2.0-2.0); BG CARBOXYHEMOGLOBIN 1.5 % (0.5-1.5); BG FRACTION INSPIRED OXYGEN 28; BG HCO3 ACT 44.7 mmol/L (22.0-26.0); BG METHEMOGLOBIN 0.4 % (0.0-1.5); BG OXYGEN SATURATION 92.9 % (92.0-98.5); BG OXYHEMOGLOBIN 91.1 % (94.0-97.0); BG PCO2 69.1 mmHg (35.0-45.0); BG PH 7.429 (7.350-7.450); BG PO2 65.6 mmHg (75.0-100.0); BG SAMPLE SITE LEFT RADIAL; BG TOTAL HEMOGLOBIN 13.9 g/dL (12.0-18.0); BG VENT MODE NASAL CANNULA
[2018-04-20] MEDS ORDERED: METHYLPREDNISOLONE SOD SUCC 125 MG/2 ML VIAL IV SCH (21:00)
[2018-04-21] VITALS (11 sets, daily range): BP systolic 131–158; BP diastolic 58–98
[2018-04-21] MEDS: AZITHROMYCIN 500 MG in DEXT 5% WATER 250 ML IV SCH (00:24)
[2018-04-21] MEDS: HYDROCODONE/ACETAMINOPHEN 10/325MG TABLET PO PRN ×3 (00:25→22:19)
[2018-04-21] MEDS: LORAZEPAM 2MG/ML CPJ IV PRN (02:16)
[2018-04-21] MEDS: IPRATROPIUM/ALBUTEROL 0.5-3(2.5)MG/3ML NEB HHN PRN ×4 (05:08→16:21)
[2018-04-21] MEDS: FUROSEMIDE 40MG/4ML VIAL IV SCH (08:55)
[2018-04-21] MEDS: GUAIFENESIN 200MG/10ML SUGAR FREE UDC PO PRN (08:55)
[2018-04-21] MEDS: ENOXAPARIN 40MG/0.4ML SYR SUBCUT SCH (08:57)
[2018-04-21] MEDS: ASPIRIN 81MG EC TABLET PO SCH (08:57)
[2018-04-21] MEDS: PREDNISONE 20MG TABLET PO SCH ×2 (09:10→18:01)
[2018-04-22] VITALS (9 sets, daily range): BP systolic 127–149; BP diastolic 65–87
[2018-04-22] MEDS: LORAZEPAM 2MG/ML CPJ IV PRN (00:03)
[2018-04-22] MEDS: AZITHROMYCIN 500 MG in DEXT 5% WATER 250 ML IV SCH (00:03)
[2018-04-22] MEDS: IPRATROPIUM/ALBUTEROL 0.5-3(2.5)MG/3ML NEB HHN PRN ×4 (08:19→20:11)
[2018-04-22] MEDS: FUROSEMIDE 40MG/4ML VIAL IV SCH (09:00)
[2018-04-22] MEDS: ENOXAPARIN 40MG/0.4ML SYR SUBCUT SCH (09:20)
[2018-04-22] MEDS: ASPIRIN 81MG EC TABLET PO SCH (09:20)
[2018-04-22] MEDS: HYDROCODONE/ACETAMINOPHEN 10/325MG TABLET PO PRN ×3 (09:22→21:38)
[2018-04-22] MEDS: PREDNISONE 20MG TABLET PO SCH ×2 (09:27→18:26)
[2018-04-22] MEDS: ONDANSETRON HCL 4MG/2ML INJ IV PRN (21:37)
[2018-04-23] VITALS (16 sets, daily range): BP systolic 107–148; BP diastolic 61–82
[2018-04-23] MEDS: IPRATROPIUM/ALBUTEROL 0.5-3(2.5)MG/3ML NEB HHN PRN ×4 (00:17→19:58)
[2018-04-23] MEDS: AZITHROMYCIN 500 MG in DEXT 5% WATER 250 ML IV SCH (00:39)
[2018-04-23] MEDS: LORAZEPAM 2MG/ML CPJ IV PRN ×2 (02:54→20:18)
[2018-04-23] MEDS: PREDNISONE 20MG TABLET PO SCH (08:57)
[2018-04-23] MEDS: FUROSEMIDE 40MG/4ML VIAL IV SCH (08:57)
[2018-04-23] MEDS: ENOXAPARIN 40MG/0.4ML SYR SUBCUT SCH (08:57)
[2018-04-23] MEDS: ASPIRIN 81MG EC TABLET PO SCH (08:58)
[2018-04-23] MEDS: HYDROCODONE/ACETAMINOPHEN 10/325MG TABLET PO PRN ×2 (10:39→20:19)
[2018-04-23] MEDS: BUDESONIDE 0.5MG/2ML NEB HHN SCH ×2 (12:28→19:55)
[2018-04-23] MEDS: GUAIFENESIN 200MG/10ML SUGAR FREE UDC PO PRN (23:25)
[2018-04-24] VITALS (9 sets, daily range): BP systolic 129–143; BP diastolic 67–85
[2018-04-24] MEDS: LORAZEPAM 2MG/ML CPJ IV PRN ×4 (01:43→18:31)
[2018-04-24] MEDS: HYDROCODONE/ACETAMINOPHEN 10/325MG TABLET PO PRN ×3 (01:44→18:31)
[2018-04-24] MEDS: BUDESONIDE 0.5MG/2ML NEB HHN SCH (07:37)
[2018-04-24] MEDS: IPRATROPIUM/ALBUTEROL 0.5-3(2.5)MG/3ML NEB HHN PRN ×4 (07:37→21:05)
[2018-04-24] MEDS ORDERED: PREDNISONE 20MG TABLET PO SCH (09:00)
[2018-04-24] MEDS: ENOXAPARIN 40MG/0.4ML SYR SUBCUT SCH ×2 (09:00→09:21)
[2018-04-24] MEDS: ASPIRIN 81MG EC TABLET PO SCH (09:20)
[2018-04-24] MEDS: FUROSEMIDE 40MG/4ML VIAL IV SCH (09:21)
[2018-04-25] VITALS (11 sets, daily range): BP systolic 90–154; BP diastolic 67–84
[2018-04-25] MEDS: IPRATROPIUM/ALBUTEROL 0.5-3(2.5)MG/3ML NEB HHN PRN ×3 (00:07→21:14)
[2018-04-25] MEDS: BUDESONIDE 0.5MG/2ML NEB HHN SCH ×3 (00:07→21:13)
[2018-04-25] MEDS: HYDROCODONE/ACETAMINOPHEN 10/325MG TABLET PO PRN ×4 (01:07→19:19)
[2018-04-25] MEDS: FUROSEMIDE 40MG/4ML VIAL IV SCH (09:00)
[2018-04-25] MEDS: ASPIRIN 81MG EC TABLET PO SCH (09:25)
[2018-04-25] MEDS: PREDNISONE 20MG TABLET PO SCH (09:25)
[2018-04-25] MEDS: ENOXAPARIN 40MG/0.4ML SYR SUBCUT SCH (09:27)
[2018-04-25] MEDS: LORAZEPAM 2MG/ML CPJ IV PRN (20:46)
[2018-04-26] VITALS (13 sets, daily range): BP systolic 117–150; BP diastolic 51–81
[2018-04-26] MEDS: LORAZEPAM 2MG/ML CPJ IV PRN ×2 (00:57→20:25)
[2018-04-26] MEDS: IPRATROPIUM/ALBUTEROL 0.5-3(2.5)MG/3ML NEB HHN PRN ×2 (04:35→15:36)
[2018-04-26 08:03] LABS: CHLORIDE 94 mEq/L (98-107)
[2018-04-26 08:08] LABS: HEMATOCRIT 37.9 % (36.0-48.0); HEMOGLOBIN 12.1 g/dL (12.0-16.0); PLATELET 191 x1000/uL (130-400); RED BLOOD CELL COUNT 4.03 mill/uL (4.2-5.4); RED CELL DISTRIBUTION WIDTH 21.9 % (11.6-14.6)
[2018-04-26] MEDS: PREDNISONE 20MG TABLET PO SCH (09:25)
[2018-04-26] MEDS: FUROSEMIDE 40MG/4ML VIAL IV SCH (09:25)
[2018-04-26] MEDS: ASPIRIN 81MG EC TABLET PO SCH (09:25)
[2018-04-26] MEDS: ENOXAPARIN 40MG/0.4ML SYR SUBCUT SCH (09:26)
[2018-04-26] MEDS: GUAIFENESIN 200MG/10ML SUGAR FREE UDC PO PRN (15:18)
[2018-04-26] MEDS: ACETAMINOPHEN 325MG TABLET PO PRN (15:18)
[2018-04-26] MEDS: BUDESONIDE 0.5MG/2ML NEB HHN SCH (15:35)
[2018-04-27] VITALS: BP 141/79
[2018-04-27 08:00] VITALS: BP 130/68
[2018-04-27] MEDS: FUROSEMIDE 40MG/4ML VIAL IV SCH (09:07)
[2018-04-27] MEDS: ENOXAPARIN 40MG/0.4ML SYR SUBCUT SCH (09:07)
[2018-04-27] MEDS: ASPIRIN 81MG EC TABLET PO SCH (09:08)
[2018-04-27 10:00] VITALS: BP 130/63
[2018-04-27 12:00] VITALS: BP 139/83
[2018-04-27] MEDS: LORAZEPAM 2MG/ML CPJ IV PRN ×2 (14:45→20:52)
[2018-04-27 16:00] VITALS: BP 125/77
[2018-04-28] MEDS: MAGNESIUM/ALUMINUM HYDROXIDE/SIMETHICONE 30ML UDC PO PRN (01:57)
[2018-04-28 08:00] VITALS: BP 106/77
[2018-04-28] MEDS: ASPIRIN 81MG EC TABLET PO SCH (09:18)
[2018-04-28] MEDS: FUROSEMIDE 40MG/4ML VIAL IV SCH (09:18)
[2018-04-28] MEDS: ENOXAPARIN 40MG/0.4ML SYR SUBCUT SCH (09:18)
[2018-04-28 11:33] VITALS: BP 110/70
[2018-04-28 16:00] VITALS: BP 112/77
[2018-04-28] MEDS: ACETAMINOPHEN 325MG TABLET PO PRN (16:31)
[2018-04-28] MEDS: GUAIFENESIN 200MG/10ML SUGAR FREE UDC PO PRN (18:56)
[2018-04-28 20:00] VITALS: BP 106/68
[2018-04-28 22:00] VITALS: BP 120/64
[2018-04-28] MEDS: LORAZEPAM 2MG/ML CPJ IV PRN (22:36)
[2018-04-29] VITALS (9 sets, daily range): BP systolic 101–128; BP diastolic 57–97
[2018-04-29] MEDS: ASPIRIN 81MG EC TABLET PO SCH (09:48)
[2018-04-29] MEDS: FUROSEMIDE 40MG/4ML VIAL IV SCH (09:48)
[2018-04-29] MEDS: ENOXAPARIN 40MG/0.4ML SYR SUBCUT SCH (09:49)
[2018-04-29] MEDS: LORAZEPAM 2MG/ML CPJ IV PRN ×2 (11:32→22:15)
[2018-04-29] MEDS: HYDROCODONE/ACETAMINOPHEN 10/325MG TABLET PO PRN (16:07)
[2018-04-29] MEDS: GUAIFENESIN 200MG/10ML SUGAR FREE UDC PO PRN (17:03)
[2018-04-30] VITALS: BP 121/70
[2018-04-30] MEDS: HYDROCODONE/ACETAMINOPHEN 10/325MG TABLET PO PRN ×2 (03:14→10:09)
[2018-04-30 04:00] VITALS: BP 124/82
[2018-04-30 08:00] VITALS: BP 114/72
[2018-04-30] MEDS: FUROSEMIDE 40MG/4ML VIAL IV SCH ×3 (09:00→10:10)
[2018-04-30] MEDS: GUAIFENESIN 200MG/10ML SUGAR FREE UDC PO PRN (10:07)
[2018-04-30] MEDS: MAGNESIUM/ALUMINUM HYDROXIDE/SIMETHICONE 30ML UDC PO PRN (10:07)
[2018-04-30] MEDS: ASPIRIN 81MG EC TABLET PO SCH (10:07)
[2018-04-30] MEDS: ONDANSETRON HCL 4MG/2ML INJ IV PRN (10:10)
[2018-04-30] MEDS: ENOXAPARIN 40MG/0.4ML SYR SUBCUT SCH (10:10)
[2018-04-30 12:00] VITALS: BP 103/83
[2018-04-30 16:00] VITALS: BP 125/92
[2018-04-30] MEDS: LORAZEPAM 2MG/ML CPJ IV PRN ×2 (17:30→22:27)
[2018-04-30 20:00] VITALS: BP 128/83
[2018-05-01] VITALS: BP 118/80
[2018-05-01] MEDS: HYDROCODONE/ACETAMINOPHEN 10/325MG TABLET PO PRN (01:04)
[2018-05-01 04:00] VITALS: BP 122/82
[2018-05-01 08:00] VITALS: BP 122/88
[2018-05-01] MEDS: ENOXAPARIN 40MG/0.4ML SYR SUBCUT SCH (09:04)
[2018-05-01] MEDS: ASPIRIN 81MG EC TABLET PO SCH (09:04)
[2018-05-01] MEDS: FUROSEMIDE 40MG/4ML VIAL IV SCH (09:04)
[2018-05-01] MEDS ORDERED: LIDOCAINE HCL/PF 1% 2ML VIAL ONE (14:46)
[2018-05-01 18:31] LABS: BG BASE EXCESS 8.6 mmol/L (-2.0-2.0); BG CARBOXYHEMOGLOBIN 1.3 % (0.5-1.5); BG DEOXYHEMOGLOBIN 13.9 % (0.0-5.0); BG FRACTION INSPIRED OXYGEN 21; BG HCO3 ACT 34.6 mmol/L (22.0-26.0); BG METHEMOGLOBIN 0.3 % (0.0-1.5); BG OXYGEN SATURATION 85.9 % (92.0-98.5); BG OXYHEMOGLOBIN 84.5 % (94.0-97.0); BG PCO2 53.7 mmHg (35.0-45.0); BG PH 7.427 (7.350-7.450); BG PO2 49.6 mmHg (75.0-100.0); BG SAMPLE SITE RIGHT RADIAL; BG TOTAL HEMOGLOBIN 13.4 g/dL (12.0-18.0); BG VENT MODE ROOM AIR
[2018-05-01 20:00] VITALS: BP 124/80
[2018-05-01] MEDS ORDERED: LORAZEPAM 2MG/ML CPJ IV PRN (20:45)
[2018-05-02] VITALS: BP 121/75
[2018-05-02 00:50] VITALS: BP 119/76
[2018-05-02] MEDS: HYDROCODONE/ACETAMINOPHEN 10/325MG TABLET PO PRN (00:50)
[2018-05-02 04:33] VITALS: BP 116/78
[2018-05-02] MEDS: ASPIRIN 81MG EC TABLET PO SCH (08:15)
[2018-05-02] MEDS: ENOXAPARIN 40MG/0.4ML SYR SUBCUT SCH (08:15)
[2018-05-02] MEDS: FUROSEMIDE 40MG/4ML VIAL IV SCH (08:15)
== END 2018-05-02 12:25 | disposition home or self-care (01) | DRG 816 ==
LOC: ER 17:13 → EDBEDREQTM 20:19 → EDBEDREQSVC 20:19 → EDBEDREQ 20:19 → EDBEDREQTM 20:33 → EDBEDREQSVC 20:33 → 5EST 21:29 → ENRESERV 21:42
PROVIDERS: ADMIT Internal Medicine; ATTEND Internal Medicine
PROC: 5A09357 Assistance with Respiratory Ventilation, Less than 24 Consecutive Hours, Continuous Positive Airway Pressure (ICD-10-PCS; principal; 2018-04-15)
PROC: 5A09357 Assistance with Respiratory Ventilation, Less than 24 Consecutive Hours, Continuous Positive Airway Pressure (ICD-10-PCS; 2018-04-22)
DX: T40.5X1A Poisoning by cocaine, accidental (unintentional), initial encounter (principal); J96.21 Acute and chronic respiratory failure with hypoxia; I50.33 Acute on chronic diastolic (congestive) heart failure; I27.20 Pulmonary hypertension, unspecified; J44.1 Chronic obstructive pulmonary disease with (acute) exacerbation; I11.0 Hypertensive heart disease with heart failure; R23.4 Changes in skin texture; J68.0 Bronchitis and pneumonitis due to chemicals, gases, fumes and vapors; F19.10 Other psychoactive substance abuse, uncomplicated; T40.991A Poisoning by other psychodysleptics [hallucinogens], accidental (unintentional), initial encounter; I25.10 Atherosclerotic heart disease of native coronary artery without angina pectoris; E05.90 Thyrotoxicosis, unspecified without thyrotoxic crisis or storm; E78.5 Hyperlipidemia, unspecified; Z82.5 Family history of asthma and other chronic lower respiratory diseases; Z85.42 Personal history of malignant neoplasm of other parts of uterus; Z86.73 Personal history of transient ischemic attack (TIA), and cerebral infarction without residual deficits; Z87.891 Personal history of nicotine dependence; Z90.710 Acquired absence of both cervix and uterus; Z91.14 Patient's other noncompliance with medication regimen; Z88.0 Allergy status to penicillin; Z65.8 Other specified problems related to psychosocial circumstances; Z99.81 Dependence on supplemental oxygen; Z88.8 Allergy status to other drugs, medicaments and biological substances; Z88.1 Allergy status to other antibiotic agents; Z79.899 Other long term (current) drug therapy; Y92.89 Other specified places as the place of occurrence of the external cause; Z68.27 Body mass index [BMI] 27.0-27.9, adult
CPT/HCPCS: 36415; 36600; 71045; 80048; 80061; 80198; 80305; 82375; 82550; 82553; 82805; 83036; 83605; 83880; 84134; 84145; 84439; 84443; 84484; 85027; 85379; 93005; 93970; 94640; 94644; 97162; 99285; J0456; J1200; J1650; J1940; J2060; J2405; J2920; J2930; J3475; J3490; J7050; J7060; J7512; J7611; J7620; J7626

== ENCOUNTER 2018-06-21 11:21 | Emergency (ER) | payer MEDICAID, OTHER ==
[~2018-06-21] VITALS: Ht 172.7 cm; Wt 78.0 kg
[2018-06-21] MEDS ORDERED: ALBUTEROL (0.083%) 2.5MG/3ML NEB HHN ONE (11:45)
[2018-06-21 12:10] LABS: BASOPHILS % 1.3 % (0.0-2.0); EOSINOPHILS % 1.2 % (0.0-5.0); HEMATOCRIT. 45.2 % (36.0-48.0); HEMOGLOBIN. 14.5 g/dL (12.0-16.0); LYMPHOCYTES % 46.5 % (20.0-50.0); MEAN CORPUSCULAR HEMOGLOBIN 29.9 pg (28.0-32.0); MEAN CORPUSCULAR VOLUME 93.1 fL (81.0-99.0); MEAN PLATELET VOLUME 8.7 fl (7.4-10.4); MONOCYTES % 10.2 % (2.0-8.0); NEUTROPHILS % 40.8 % (40.0-76.0); PLATELET 150 x1000/uL (130-400); RED BLOOD CELL COUNT 4.85 mill/uL (4.2-5.4); RED CELL DISTRIBUTION WIDTH 19.9 % (11.6-14.6)
[2018-06-21 12:17] LABS: CHLORIDE 102 mEq/L (98-107)
[2018-06-21 12:18] LABS: PROTHROMBIN TIME 10.5 sec (9.1-11.1)
[2018-06-21] MEDS ORDERED: IBUPROFEN 600MG TABLET PO ONE (14:00)
[2018-06-21 14:07] LABS: CLARITY URINE CLEAR (CLEAR); COLOR URINE YELLOW (YELLOW); KETONES URINE NEGATIVE (NEGATIVE); LEUKOCYTE ESTERASE URINE NEGATIVE (NEGATIVE); NITRITE URINE NEGATIVE (NEGATIVE); OCCULT BLOOD URINE NEGATIVE (NEGATIVE); PROTEIN URINE 3+ (NEGATIVE); SPECIFIC GRAVITY URINE 1.015 (1.005-1.030)
[2018-06-21 14:55] VITALS: BP 123/65
== END 2018-06-21 15:05 | disposition home or self-care (01) ==
LOC: ER 11:21 → CANBEDREQ 16:36
DX: J44.1 Chronic obstructive pulmonary disease with (acute) exacerbation (principal); I10 Essential (primary) hypertension; R56.9 Unspecified convulsions; Z88.0 Allergy status to penicillin; Z88.1 Allergy status to other antibiotic agents; Z88.8 Allergy status to other drugs, medicaments and biological substances; Z87.01 Personal history of pneumonia (recurrent)
CPT/HCPCS: 36415; 71045; 80053; 81003; 84484; 85025; 85610; 87040; 93005; 94640; 99284; J7611

== ENCOUNTER 2018-07-14 17:42 | Inpatient (IN) | payer MEDICAID, OTHER ==
[~2018-07-14] VITALS: Ht 152.4 cm; Wt 76.7 kg
[2018-07-14] MEDS ORDERED: METHYLPREDNISOLONE SOD SUCC 125 MG/2 ML VIAL IV STA (17:57)
[2018-07-14] MEDS ORDERED: IPRATROPIUM BROMIDE (0.02%) 0.5MG/2.5ML NEB HHN STA ×2 (17:57→21:13)
[2018-07-14] MEDS: ALBUTEROL (0.083%) 2.5MG/3ML NEB HHN SCH ×2 (18:00→20:40)
[2018-07-14] MEDS ORDERED: MAGNESIUM 2 G PREMIX 50 ML IV ONE (18:00)
[2018-07-14] MEDS ORDERED: MEROPENEM 1,000 MG in SODIUM CHLORIDE 0.9% 100 ML IV ONE (18:30)
[2018-07-14 19:02] LABS: CHLORIDE 101 mEq/L (98-107); PROTHROMBIN TIME 10.5 sec (9.1-11.1)
[2018-07-14 19:03] LABS: BASOPHILS % 1.7 % (0.0-2.0); EOSINOPHILS % 1.9 % (0.0-5.0); HEMATOCRIT. 45.8 % (36.0-48.0); HEMOGLOBIN. 14.4 g/dL (12.0-16.0); LYMPHOCYTES % 20.8 % (20.0-50.0); MEAN CORPUSCULAR HEMOGLOBIN 28.7 pg (28.0-32.0); MEAN CORPUSCULAR VOLUME 91.5 fL (81.0-99.0); MEAN PLATELET VOLUME 8.8 fl (7.4-10.4); NEUTROPHILS % 64.6 % (40.0-76.0); PLATELET 168 x1000/uL (130-400); RED BLOOD CELL COUNT 5.01 mill/uL (4.2-5.4); RED CELL DISTRIBUTION WIDTH 18.8 % (11.6-14.6)
[2018-07-14] MEDS ORDERED: FUROSEMIDE 20MG/2ML VIAL IVP ONE (19:30)
[2018-07-14] MEDS ORDERED: ALBUTEROL (0.083%) 2.5MG/3ML NEB HHN STA (21:13)
[2018-07-14] MEDS ORDERED: AZITHROMYCIN 500 MG in DEXT 5% WATER 250 ML IV ONE (21:45)
[2018-07-14 22:00] VITALS: BP 113/77
[2018-07-14] MEDS ORDERED: AMIKACIN SULFATE 400 MG in SODIUM CHLORIDE 0.9% 100 ML IV NR (22:00)
[2018-07-14] MEDS ORDERED: AMIKACIN SULFATE 400 MG in SODIUM CHLORIDE 0.9% 100 ML IV SCH (22:00)
[2018-07-14] MEDS ORDERED: IPRATROPIUM/ALBUTEROL 0.5-3(2.5)MG/3ML NEB HHN PRN (23:45)
[2018-07-15] MEDS: IPRATROPIUM/ALBUTEROL 0.5-3(2.5)MG/3ML NEB HHN SCH ×6 (00:55→21:12)
[2018-07-15 01:16] LABS: BG BASE EXCESS 6.5 mmol/L (-2.0-2.0); BG CARBOXYHEMOGLOBIN 2.8 % (0.5-1.5); BG DEOXYHEMOGLOBIN 1.4 % (0.0-5.0); BG FRACTION INSPIRED OXYGEN 100; BG HCO3 ACT 34.9 mmol/L (22.0-26.0); BG METHEMOGLOBIN 0.3 % (0.0-1.5); BG OXYGEN SATURATION 98.6 % (92.0-98.5); BG OXYHEMOGLOBIN 95.5 % (94.0-97.0); BG PCO2 67.8 mmHg (35.0-45.0); BG PH 7.329 (7.350-7.450); BG PO2 147.4 mmHg (75.0-100.0); BG SAMPLE SITE LEFT RADIAL; BG TOTAL HEMOGLOBIN 14.1 g/dL (12.0-18.0); BG VENT MODE MASK - NRB
[2018-07-15] MEDS ORDERED: AMIKACIN 500MG in SODIUM CHLORIDE 0.9% 100ML IV SCH (06:00)
[2018-07-15 08:42] LABS: BG BASE EXCESS 8.6 mmol/L (-2.0-2.0); BG CARBOXYHEMOGLOBIN 1.9 % (0.5-1.5); BG DEOXYHEMOGLOBIN 20.5 % (0.0-5.0); BG FRACTION INSPIRED OXYGEN 21; BG HCO3 ACT 37.1 mmol/L (22.0-26.0); BG METHEMOGLOBIN 0.3 % (0.0-1.5); BG OXYHEMOGLOBIN 77.3 % (94.0-97.0); BG PCO2 68.5 mmHg (35.0-45.0); BG PH 7.351 (7.350-7.450); BG PO2 45.3 mmHg (75.0-100.0); BG SAMPLE SITE RIGHT RADIAL; BG TOTAL HEMOGLOBIN 14.6 g/dL (12.0-18.0); BG VENT MODE ROOM AIR
[2018-07-15 14:30] LABS: *BENZODIAZEPINES SCREEN URINE NEGATIVE (NEGATIVE); *COCAINE SCREEN URINE PRESUMTIVE POSITIVE (NEGATIVE); METHADONE URINE SCREEN NEGATIVE (NEGATIVE); OPIATES URINE SCREEN NEGATIVE (NEGATIVE)
[2018-07-15 14:31] LABS: *AMPHETAMINES SCREEN URINE NEGATIVE (NEGATIVE); *BARBITURATES SCREEN URINE NEGATIVE (NEGATIVE); CANNABINOID URINE SCREEN NEGATIVE (NEGATIVE); PHENCYCLIDINE URINE SCREEN NEGATIVE (NEGATIVE)
[2018-07-15 20:00] VITALS: BP 127/83
[2018-07-15] MEDS: LORAZEPAM 2MG/ML CPJ IV PRN (20:31)
[2018-07-15 22:00] VITALS: BP 105/89
[2018-07-16] VITALS: BP 128/63
[2018-07-16] MEDS: IPRATROPIUM/ALBUTEROL 0.5-3(2.5)MG/3ML NEB HHN SCH ×6 (00:59→21:02)
[2018-07-16 02:00] VITALS: BP 112/77
[2018-07-16] MEDS: METHYLPREDNISOLONE SOD SUCC 40 MG/ML VIAL IV SCH ×4 (02:21→21:38)
[2018-07-16 04:00] VITALS: BP 160/68
[2018-07-16 06:08] LABS: BASOPHILS % 0.9 % (0.0-2.0); EOSINOPHILS % 0.7 % (0.0-5.0); HEMATOCRIT. 41.6 % (36.0-48.0); LYMPHOCYTES % 12.4 % (20.0-50.0); MEAN CORPUSCULAR HEMOGLOBIN 29.3 pg (28.0-32.0); MEAN CORPUSCULAR VOLUME 93.6 fL (81.0-99.0); MEAN PLATELET VOLUME 8.7 fl (7.4-10.4); MONOCYTES % 5.2 % (2.0-8.0); NEUTROPHILS % 80.8 % (40.0-76.0); PLATELET 152 x1000/uL (130-400); RED BLOOD CELL COUNT 4.44 mill/uL (4.2-5.4); RED CELL DISTRIBUTION WIDTH 19.1 % (11.6-14.6)
[2018-07-16 06:28] LABS: CHLORIDE 102 mEq/L (98-107)
[2018-07-16 08:00] VITALS: BP 119/75
[2018-07-16] MEDS: HEPARIN 5000 UNITS/ML VIAL SUBCUT SCH ×2 (09:50→21:32)
[2018-07-16] MEDS: LORAZEPAM 2MG/ML CPJ IV PRN ×2 (10:16→21:41)
[2018-07-16] MEDS ORDERED: FUROSEMIDE 40MG/4ML VIAL IVP SCH (10:30)
[2018-07-16] MEDS: FUROSEMIDE 20MG TABLET PO SCH (18:39)
[2018-07-16 20:00] VITALS: BP 147/87
[2018-07-16] MEDS: AMLODIPINE 5MG TABLET PO SCH (21:27)
[2018-07-16 22:00] VITALS: BP 138/87
[2018-07-17] VITALS: BP 154/77
[2018-07-17] MEDS: IPRATROPIUM/ALBUTEROL 0.5-3(2.5)MG/3ML NEB HHN SCH ×4 (00:21→20:51)
[2018-07-17 04:00] VITALS: BP 152/86
[2018-07-17] MEDS: METHYLPREDNISOLONE SOD SUCC 40 MG/ML VIAL IV SCH ×3 (05:12→20:41)
[2018-07-17 06:24] LABS: BASOPHILS % 0.4 % (0.0-2.0); HEMATOCRIT. 41.2 % (36.0-48.0); HEMOGLOBIN. 13.1 g/dL (12.0-16.0); LYMPHOCYTES % 8.9 % (20.0-50.0); MEAN CORPUSCULAR HEMOGLOBIN 29.4 pg (28.0-32.0); MEAN CORPUSCULAR VOLUME 92.3 fL (81.0-99.0); MEAN PLATELET VOLUME 9.3 fl (7.4-10.4); MONOCYTES % 4.7 % (2.0-8.0); PLATELET 193 x1000/uL (130-400); RED BLOOD CELL COUNT 4.46 mill/uL (4.2-5.4); RED CELL DISTRIBUTION WIDTH 19.1 % (11.6-14.6)
[2018-07-17 06:47] LABS: CHLORIDE 100 mEq/L (98-107)
[2018-07-17] MEDS: FUROSEMIDE 20MG TABLET PO SCH ×2 (06:57→18:59)
[2018-07-17 08:00] VITALS: BP 142/85
[2018-07-17] MEDS: HEPARIN 5000 UNITS/ML VIAL SUBCUT SCH ×2 (09:11→21:00)
[2018-07-17] MEDS: AMLODIPINE 5MG TABLET PO SCH ×2 (09:19→20:42)
[2018-07-17 12:00] VITALS: BP 132/63
[2018-07-17] MEDS: LOSARTAN POTASSIUM 25 MG TABLET PO SCH (13:45)
[2018-07-17 17:17] VITALS: BP 155/85
[2018-07-17] MEDS: LORAZEPAM 2MG/ML CPJ IV PRN (20:41)
[2018-07-17 20:43] VITALS: BP 144/81
[2018-07-18] VITALS (7 sets, daily range): BP systolic 113–148; BP diastolic 58–84
[2018-07-18] MEDS: IPRATROPIUM/ALBUTEROL 0.5-3(2.5)MG/3ML NEB HHN SCH ×6 (00:21→21:35)
[2018-07-18] MEDS: LORAZEPAM 2MG/ML CPJ IV PRN ×4 (02:52→22:29)
[2018-07-18] MEDS: FUROSEMIDE 20MG TABLET PO SCH ×2 (06:12→16:29)
[2018-07-18] MEDS: METHYLPREDNISOLONE SOD SUCC 40 MG/ML VIAL IV SCH ×3 (06:12→22:23)
[2018-07-18 06:35] LABS: BASOPHILS % 0.3 % (0.0-2.0); HEMATOCRIT. 42.6 % (36.0-48.0); HEMOGLOBIN. 13.4 g/dL (12.0-16.0); LYMPHOCYTES % 8.1 % (20.0-50.0); MEAN CORPUSCULAR HEMOGLOBIN 29.2 pg (28.0-32.0); MEAN CORPUSCULAR VOLUME 93.2 fL (81.0-99.0); MEAN PLATELET VOLUME 9.5 fl (7.4-10.4); MONOCYTES % 4.7 % (2.0-8.0); NEUTROPHILS % 86.9 % (40.0-76.0); PLATELET 186 x1000/uL (130-400); RED BLOOD CELL COUNT 4.58 mill/uL (4.2-5.4)
[2018-07-18 06:48] LABS: CHLORIDE 96 mEq/L (98-107)
[2018-07-18 08:15] LABS: HIV SCREEN 4G Non Reactive (Non Reactive)
[2018-07-18] MEDS: LOSARTAN POTASSIUM 25 MG TABLET PO SCH (09:45)
[2018-07-18] MEDS: AMLODIPINE 5MG TABLET PO SCH ×2 (09:46→22:22)
[2018-07-18] MEDS: HEPARIN 5000 UNITS/ML VIAL SUBCUT SCH ×2 (09:48→22:23)
[2018-07-19] VITALS: BP 149/89
[2018-07-19] MEDS: IPRATROPIUM/ALBUTEROL 0.5-3(2.5)MG/3ML NEB HHN SCH ×6 (00:46→20:00)
[2018-07-19] MEDS: HYDROCODONE/ACETAMINOPHEN 5/325MG TABLET PO PRN ×2 (01:55→19:18)
[2018-07-19 04:00] VITALS: BP 130/70
[2018-07-19 08:01] VITALS: BP 110/86
[2018-07-19] MEDS: LOSARTAN POTASSIUM 25 MG TABLET PO SCH (10:13)
[2018-07-19] MEDS: AMLODIPINE 5MG TABLET PO SCH ×2 (10:14→21:31)
[2018-07-19] MEDS: HEPARIN 5000 UNITS/ML VIAL SUBCUT SCH ×2 (10:16→21:31)
[2018-07-19 11:45] VITALS: BP 139/76
[2018-07-19] MEDS: METHYLPREDNISOLONE SOD SUCC 40 MG/ML VIAL IV SCH ×2 (13:58→21:31)
[2018-07-19] MEDS: LORAZEPAM 2MG/ML CPJ IV PRN (13:58)
[2018-07-19 16:00] VITALS: BP 111/55
[2018-07-19] MEDS: FUROSEMIDE 20MG TABLET PO SCH (19:13)
[2018-07-19 20:00] VITALS: BP 110/58
[2018-07-19] MEDS ORDERED: NITROGLYCERIN 0.4MG TABLET SL SL PRN (23:45)
[2018-07-19] MEDS ORDERED: ASPIRIN 81MG TABLET PO NR (23:45)
[2018-07-20] VITALS: BP 130/80
[2018-07-20] MEDS: IPRATROPIUM/ALBUTEROL 0.5-3(2.5)MG/3ML NEB HHN SCH ×3 (00:02→09:40)
[2018-07-20] MEDS: HYDROCODONE/ACETAMINOPHEN 5/325MG TABLET PO PRN ×2 (00:28→05:12)
[2018-07-20] MEDS: LORAZEPAM 2MG/ML CPJ IV PRN (00:28)
[2018-07-20 00:56] LABS: CREATINE KINASE 42 IU/L (26-192)
[2018-07-20 00:57] LABS: CREATINE KINASE MB FRACTION 2.6 ng/mL (0.5-3.6)
[2018-07-20] MEDS ORDERED: LORAZEPAM 2MG/ML CPJ IV PRN (01:30)
[2018-07-20 04:00] VITALS: BP 141/79
[2018-07-20] MEDS: FUROSEMIDE 20MG TABLET PO SCH (06:28)
[2018-07-20] MEDS: METHYLPREDNISOLONE SOD SUCC 40 MG/ML VIAL IV SCH (06:28)
[2018-07-20 08:00] VITALS: BP 126/75
[2018-07-20] MEDS: HEPARIN 5000 UNITS/ML VIAL SUBCUT SCH (08:16)
[2018-07-20] MEDS: LOSARTAN POTASSIUM 25 MG TABLET PO SCH (08:16)
[2018-07-20] MEDS: AMLODIPINE 5MG TABLET PO SCH (08:16)
[2018-07-20] MEDS ORDERED: ASPIRIN 81MG TABLET PO SCH (09:00)
[2018-07-20 10:56] VITALS: BP 126/75
[2018-07-20 12:00] VITALS: BP 152/73
== END 2018-07-20 13:04 | disposition home or self-care (01) | DRG 133 ==
LOC: ER 17:42 → 3WST 20:18 → EDBEDREQTM 20:33 → EDBEDREQSVC 20:33 → EDBEDREQ 20:33 → ENRESERV 20:59 → 3WST 23:06 → 8WST 07-17 02:05
PROVIDERS: ADMIT Internal Medicine; ATTEND Internal Medicine
PROC: 5A09357 Assistance with Respiratory Ventilation, Less than 24 Consecutive Hours, Continuous Positive Airway Pressure (ICD-10-PCS; principal; 2018-07-14)
PROC: 5A09357 Assistance with Respiratory Ventilation, Less than 24 Consecutive Hours, Continuous Positive Airway Pressure (ICD-10-PCS; 2018-07-15)
PROC: 5A09357 Assistance with Respiratory Ventilation, Less than 24 Consecutive Hours, Continuous Positive Airway Pressure (ICD-10-PCS; 2018-07-16)
DX: J96.20 Acute and chronic respiratory failure, unspecified whether with hypoxia or hypercapnia (principal); I50.33 Acute on chronic diastolic (congestive) heart failure; I27.21 Secondary pulmonary arterial hypertension; I07.1 Rheumatic tricuspid insufficiency; Z99.81 Dependence on supplemental oxygen; I11.0 Hypertensive heart disease with heart failure; J44.1 Chronic obstructive pulmonary disease with (acute) exacerbation; I27.81 Cor pulmonale (chronic); F14.10 Cocaine abuse, uncomplicated; F17.200 Nicotine dependence, unspecified, uncomplicated; J98.11 Atelectasis; G40.909 Epilepsy, unspecified, not intractable, without status epilepticus; I25.10 Atherosclerotic heart disease of native coronary artery without angina pectoris; Z59.0 Homelessness; Z85.42 Personal history of malignant neoplasm of other parts of uterus; Z90.710 Acquired absence of both cervix and uterus; Z88.0 Allergy status to penicillin; Z88.1 Allergy status to other antibiotic agents; Z88.8 Allergy status to other drugs, medicaments and biological substances
CPT/HCPCS: 36415; 36600; 71045; 80048; 80305; 82375; 82550; 82553; 82805; 83605; 83735; 83880; 84145; 84484; 87389; 87804; 93005; 93306; 94640; 96365; 96375; 97162; 99291; C1893; J0278; J0456; J1644; J1940; J2060; J2185; J2920; J2930; J3475; J7050; J7060; J7611; J7620; A4315

== ENCOUNTER 2018-07-27 00:53 | Emergency (ER) | payer MEDICAID ==
[~2018-07-27] VITALS: Ht 162.6 cm; Wt 66.0 kg
[2018-07-27] MEDS ORDERED: IPRATROPIUM BROMIDE (0.02%) 0.5MG/2.5ML NEB HHN STA (02:49)
[2018-07-27] MEDS ORDERED: ALBUTEROL (0.083%) 2.5MG/3ML NEB HHN STA ×2 (02:49→10:41)
[2018-07-27] MEDS ORDERED: METHYLPREDNISOLONE SOD SUCC 125 MG/2 ML VIAL IV STA (02:49)
[2018-07-27] MEDS ORDERED: ALBUTEROL (0.083%) 2.5MG/3ML NEB HHN SCH (05:45)
[2018-07-27] MEDS ORDERED: IPRATROPIUM BROMIDE (0.02%) 0.5MG/2.5ML NEB HHN SCH (05:45)
[2018-07-27 09:46] VITALS: BP 123/75
[2018-07-27] MEDS ORDERED: ONDANSETRON 4MG ODT PO ONE (10:30)
== END 2018-07-27 11:37 | disposition home or self-care (01) ==
LOC: ER 00:53
DX: J44.1 Chronic obstructive pulmonary disease with (acute) exacerbation (principal); I10 Essential (primary) hypertension; Z90.710 Acquired absence of both cervix and uterus; Z87.891 Personal history of nicotine dependence; Z88.0 Allergy status to penicillin; Z88.8 Allergy status to other drugs, medicaments and biological substances; Z88.1 Allergy status to other antibiotic agents
CPT/HCPCS: 71045; 94644; 96374; 99285; J2930; J7611; Q0162; Z7610